=== PATIENT | male | born 1990 | race Caucasian/White ===

== ENCOUNTER 2019-03-14 20:09 | Emergency (ER) | payer SELFPAY ==
[2019-03-14] MEDS ORDERED: NA CHLORIDE 0.9% 1,000 ML ONE (20:58)
[2019-03-14 21:13] LABS: Urine Blood NEGATIVE (NEG); Urine Glucose NEGATIVE (NEG); Urine Protein NEGATIVE (NEG); Urine Specific Gravity 1.015 (1.005-1.030); Urine pH 8.5 (5.0-7.0)
[2019-03-14 21:23] LABS: Barbiturates NEGATIVE (NEGATIVE); Benzodiazepines NEGATIVE (NEGATIVE); Cocaine NEGATIVE (NEGATIVE); METHAMPHETAM NEGATIVE (NEGATIVE); Methadone NEGATIVE (NEGATIVE); Opiates NEGATIVE (NEGATIVE); Phencyclidine NEGATIVE (NEGATIVE); THC Cannibis NEGATIVE (NEGATIVE)
[2019-03-14 21:28] LABS: Absolute Lymphocytes (CBC) 1.8 K/uL (0.7-4.9); Basophils % 0.6 % (0-1.3); Lymphocytes % 34.5 % (15.3-44.8); MPV 8.3 fL (7.6-11.3); RBC Red Blood Cell Count 4.78 M/uL (4.33-5.43)
[2019-03-14 21:33] LABS: ALT/SGPT 40 U/L (12-78); AST/SGOT 26 U/L (15-37); Albumin 4.4 g/dL (3.4-5.0); Alkaline Phosphatase 71 U/L (45-117); BUN Blood Urea Nitrogen 12 mg/dL (7-18); Bicarbonate 31 mmol/L (21-32); Bilirubin Total 0.4 mg/dL (0.2-1.0); Glucose Level 90 mg/dL (74-106); Lipase 101 U/L (73-393); Potassium 4.3 mmol/L (3.5-5.1); Protein, Total 8.2 g/dL (6.4-8.2); Sodium Level 140 mmol/L (136-145)
--- NOTE | 2019-03-14 21:37 | ER ---
Nurse's Notes [facility] Name: Fuentes Mccall Age: 28 yrs Sex: Male : 1990 Arrival Date: 03/14/2019 Time: 20:13 Bed 16 Private MD: Diagnosis: Weakness;Anxiety disorder, unspecified Presentation: 03/14 20:17 Presenting complaint: Patient states: tingling all over, anxiety, fatigue with ak1 increased stress at home. pt has stopped his gastric sleeve vitamins. pt with hx anxiety. Transition of care: patient was not received from another setting of care. Onset of symptoms is unknown. Risk Assessment: Do you want to hurt yourself or someone else? Patient reports no desire to harm self or others. Initial Sepsis Screen: Does the patient meet any 2 criteria? No. Patient's initial sepsis screen is negative. Does the patient have a suspected source of infection? No. Patient's initial sepsis screen is negative. Care prior to arrival: None. 20:17 Method Of Arrival: Ambulatory ak1 20:17 Acuity: TEO 3 ak1 Triage Assessment: 20:20 General: Appears in no apparent distress. Behavior is calm, cooperative. Neuro: Level ak1 of Consciousness is awake, alert, obeys commands, Oriented to person, place, time, situation, Carbon Brush Maker are equal bilaterally Moves all extremities. Gait is steady, Speech is normal, Facial symmetry appears normal. Historical: - Allergies: 20:20 No Known Allergies; ak1 - Home Meds: 20:20 Effexor Oral [Active]; lorazepam 1 mg Oral tab 1 tab PRN [Active]; ak1 - PMHx: 20:20 Depression; Anxiety; ak1 - PSHx: 20:20 gastric sleeve; ak1 - Immunization history:: Adult Immunizations unknown. - Social history:: Smoking status: Patient uses tobacco products, smokes one-half pack cigarettes per day. - Ebola Screening: : No symptoms or risks identified at this time. Screenin:21 Abuse screen: Denies threats or abuse. Denies injuries from another. Nutritional ak1 screening: No deficits noted. Tuberculosis screening: No symptoms or risk factors identified. Fall Risk None identified. Assessment: 20:30 General: Appears in no apparent distress. uncomfortable, well groomed, well nourished, jd3 Behavior is cooperative, appropriate for age, anxious. Pain: Denies pain. Neuro: Level of Consciousness is awake, alert, obeys commands, Oriented to person, place, time, situation, Carbon Brush Maker are equal bilaterally Moves all extremities. Full function Gait is steady, Speech is normal, Pupils are PERRLA, Intact Reports reports a tingling and twitching sensation all over as well as generalized fatigue. . Denies blurred vision photophobia diplopia. Cardiovascular: Denies chest pain, nausea, shortness of breath, Heart tones S1 S2 present Capillary refill < 3 seconds Patient's skin is warm and dry. Respiratory: Airway is patent Respiratory effort is even, unlabored, Respiratory pattern is regular, symmetrical, Breath sounds are clear bilaterally. Denies cough, shortness of breath. GI: Abdomen is flat, non-distended, Bowel sounds present X 4 quads. Abd is soft and non tender X 4 quads. Patient currently denies abdominal pain, diarrhea, nausea, vomiting. : No signs and/or symptoms were reported regarding the genitourinary system. EENT: No signs and/or symptoms were reported regarding the EENT system. Derm: Skin is intact, Skin is dry, Skin is normal, Skin temperature is warm. Musculoskeletal: Circulation, motion, and sensation intact. Range of motion: intact in all extremities. 21:32 Reassessment: Patient appears in no apparent distress at this time. Patient and/or jd3 family updated on plan of care and expected duration. Pain level reassessed. Patient is alert, oriented x 3, equal unlabored respirations, skin warm/dry/pink. Patient states symptoms have improved. 21:51 Reassessment: Patient appears in no apparent distress at this time. Patient and/or jd3 family updated on plan of care and expected duration. Pain level reassessed. Patient is alert, oriented x 3, equal unlabored respirations, skin warm/dry/pink. awaiting IV infusion completion before discharge. Patient states symptoms have improved. 22:14 Reassessment: Patient appears in no apparent distress at this time. Patient and/or jd3 family updated on plan of care and expected duration. Pain level reassessed. Patient is alert, oriented x 3, equal unlabored respirations, skin warm/dry/pink. reported understanding of discharge instructions. even and steady gait upon discharge. Patient denies pain at this time. Patient states feeling better. Patient states symptoms have improved. Vital Signs: 20:20 BP 132 / 90; Pulse 117; Resp 18; Temp 98.2; Pulse Ox 98% on R/A; Weight 68.95 kg (R); ak1 Height 5 ft. 8 in. (172.72 cm) (R); Pain 0/10; 22:14 Pulse 99; Resp 15 S; Pulse Ox 100% on R/A; Pain 0/10; jd3 20:20 Body Mass Index 23.11 (68.95 kg, 172.72 cm) ak1 ED Course: 20:13 Patient arrived in ED. ag3 20:19 Triage completed. ak1 20:20 Arm band placed on Patient placed in an exam room, on a stretcher, on pulse oximetry, ak1 Patient notified of wait time. 20:21 Patient has correct armband on for positive identification. Bed in low position. Call ak1 light in reach. Side rails up X 1. 20:29 Nicolás Bowling MD is Attending Physician. steven 20:29 Derrick Mason, SIMEON is Primary Nurse. jd3 21:05 Inserted saline lock: 20 gauge in left antecubital area, using aseptic technique. Blood jd3 collected. 22:15 No provider procedures requiring assistance completed. IV discontinued, intact, jd3 bleeding controlled, No redness/swelling at site. Pressure dressing applied. Administered Medications: 21:04 Drug: NS 0.9% 1000 ml Route: IV; Rate: 1 bolus; Site: left antecubital; jd3 22:16 Follow up: Response: No adverse reaction; IV Status: Completed infusion; IV Intake: jd3 1000ml Intake: 22:16 IV: 1000ml; Total: 1000ml. jd3 Outcome: 21:36 Discharge ordered by . steven 22:15 Discharged to home ambulatory, with friend. jd3 22:15 Condition: stable 22:15 Discharge instructions given to patient, Instructed on discharge instructions, follow up and referral plans. medication usage, Demonstrated understanding of instructions, follow-up care, medications, Prescriptions given X 1. 22:16 Patient left the ED. jd3 Signatures: Nicolás Bowling MD MD cha Krenek, Amber, RN RN ak1 Williams Ross Jonathon, SIMEON RN jd3 Cameron, Daniela ag3 Corrections: (The following items were deleted from the chart) 21:08 21:05 Inserted saline lock: in left antecubital area, using aseptic technique. Blood jd3 collected. oe
--- NOTE | 2019-03-14 21:38 | EDPHYS ---
Physician Documentation [facility] Name: Fuentes Mccall Age: 28 yrs Sex: Male : 1990 Arrival Date: 03/14/2019 Time: 20:13 Bed 16 Private MD: ED Physician Nicolás Bowling HPI: 03/14 20:49 This 28 yrs old Male presents to ER via Ambulatory with complaints of steven Weakness, SWEATING, DRY MOUTH. 20:49 The patient presents to the emergency department with weakness of the entire body, steven generalized weakness. Historical: - Allergies: 20:20 No Known Allergies; ak1 - Home Meds: 20:20 Effexor Oral [Active]; lorazepam 1 mg Oral tab 1 tab PRN [Active]; ak1 - PMHx: 20:20 Depression; Anxiety; ak1 - PSHx: 20:20 gastric sleeve; ak1 - Immunization history:: Adult Immunizations unknown. - Social history:: Smoking status: Patient uses tobacco products, smokes one-half pack cigarettes per day. - Ebola Screening: : No symptoms or risks identified at this time. ROS: 20:50 Constitutional: Negative for fever, chills, and weight loss, Eyes: Negative for injury, steven pain, redness, and discharge, ENT: Negative for injury, pain, and discharge, Neck: Negative for injury, pain, and swelling, Cardiovascular: Negative for chest pain, palpitations, and edema, Respiratory: Negative for shortness of breath, cough, wheezing, and pleuritic chest pain, Abdomen/GI: Negative for abdominal pain, nausea, vomiting, diarrhea, and constipation, Back: Negative for injury and pain, : Negative for injury, bleeding, discharge, and swelling, MS/Extremity: Negative for injury and deformity, Skin: Negative for injury, rash, and discoloration, Psych: Negative for depression, anxiety, suicide ideation, homicidal ideation, and hallucinations, Allergy/Immunology: Negative for hives, rash, and allergies, Endocrine: Negative for neck swelling, polydipsia, polyuria, polyphagia, and marked weight changes, Hematologic/Lymphatic: Negative for swollen nodes, abnormal bleeding, and unusual bruising. 20:50 Neuro: Positive for weakness. Exam: 20:50 Constitutional: This is a well developed, well nourished patient who is awake, alert, steven and in no acute distress. Head/Face: Normocephalic, atraumatic. Eyes: Pupils equal round and reactive to light, extra-ocular motions intact. Lids and lashes normal. Conjunctiva and sclera are non-icteric and not injected. Cornea within normal limits. Periorbital areas with no swelling, redness, or edema. ENT: Nares patent. No nasal discharge, no septal abnormalities noted. Tympanic membranes are normal and external auditory canals are clear. Oropharynx with no redness, swelling, or masses, exudates, or evidence of obstruction, uvula midline. Mucous membranes moist. Neck: Trachea midline, no thyromegaly or masses palpated, and no cervical lymphadenopathy. Supple, full range of motion without nuchal rigidity, or vertebral point tenderness. No Meningismus. Chest/axilla: Normal chest wall appearance and motion. Nontender with no deformity. No lesions are appreciated. Respiratory: Lungs have equal breath sounds bilaterally, clear to auscultation and percussion. No rales, rhonchi or wheezes noted. No increased work of breathing, no retractions or nasal flaring. Abdomen/GI: Soft, non-tender, with normal bowel sounds. No distension or tympany. No guarding or rebound. No evidence of tenderness throughout. Back: No spinal tenderness. No costovertebral tenderness. Full range of motion. Male : Normal genitalia with no discharge or lesions. Skin: Warm, dry with normal turgor. Normal color with no rashes, no lesions, and no evidence of cellulitis. MS/ Extremity: Pulses equal, no cyanosis. Neurovascular intact. Full, normal range of motion. Neuro: Awake and alert, GCS 15, oriented to person, place, time, and situation. Cranial nerves II-XII grossly intact. Motor strength 5/5 in all extremities. Sensory grossly intact. Cerebellar exam normal. Normal gait. Psych: Awake, alert, with orientation to person, place and time. Behavior, mood, and affect are within normal limits. 20:50 Cardiovascular: Rate: tachycardic, Rhythm: regular, Pulses: no pulse deficits are appreciated, Heart sounds: normal, Edema: is not appreciated, JVD: is not appreciated. Vital Signs: 20:20 BP 132 / 90; Pulse 117; Resp 18; Temp 98.2; Pulse Ox 98% on R/A; Weight 68.95 kg (R); ak1 Height 5 ft. 8 in. (172.72 cm) (R); Pain 0/10; 22:14 Pulse 99; Resp 15 S; Pulse Ox 100% on R/A; Pain 0/10; jd3 20:20 Body Mass Index 23.11 (68.95 kg, 172.72 cm) ak1 MDM: 20:29 Patient medically screened. [facility] 20:51 Data reviewed: vital signs, nurses notes, lab test result(s). [facility] 03/14 20:48 Order name: CBC with Diff [facility] 03/14 20:48 Order name: Comprehensive Metabolic Panel; Complete Time: 21:34 [facility] 03/14 20:48 Order name: UDS; Complete Time: 21:34 [facility] 03/14 20:48 Order name: Lipase; Complete Time: 21:34 [facility] 03/14 20:58 Order name: Urine Dipstick--Ancillary (enter results); Complete Time: 21:34 cm6 03/14 20:48 Order name: Urine Dipstick-Ancillary (obtain specimen); Complete Time: 21:04 [facility] Administered Medications: 21:04 Drug: NS 0.9% 1000 ml Route: IV; Rate: 1 bolus; Site: left antecubital; jd3 22:16 Follow up: Response: No adverse reaction; IV Status: Completed infusion; IV Intake: jd3 1000ml Disposition: 03/14/19 21:36 Discharged to Home. Impression: Weakness, Anxiety disorder, unspecified. - Condition is Stable. - Discharge Instructions: Weakness, Weakness, [id number], Generalized Anxiety Disorder. - Prescriptions for Klonopin 0.5 mg Oral Tablet - take 1 tablet by ORAL route every 12 hours As needed; 20 tablet. - Medication Reconciliation Form, Thank You Letter, Antibiotic Education, Prescription Opioid Use form. - Follow up: Private Physician; When: 2 - 3 days; Reason: Recheck today's complaints, Continuance of care, Re-evaluation by your physician. - Problem is new. - Symptoms have improved. Signatures: Dispatcher [employer] EDNicolás Wharton MD MD cha Krenek, Amber, RN RN ak1 Derrick Mason RN RN jd3 Corrections: (The following items were deleted from the chart) 22:16 21:36 03/14/2019 21:36 Discharged to Home. Impression: Weakness; Anxiety disorder, jd3 unspecified. Condition is Stable. Discharge Instructions: Weakness, Weakness, [id number], Generalized Anxiety Disorder. Prescriptions for Klonopin 0.5 mg Oral Tablet - take 1 tablet by ORAL route every 12 hours As needed; 20 tablet. and Forms are Medication Reconciliation Form, Thank You Letter, Antibiotic Education, Prescription Opioid Use. Follow up: Private Physician; When: 2 - 3 days; Reason: Recheck today's complaints, Continuance of care, Re-evaluation by your physician. Problem is new. Symptoms have improved. steven
== END 2019-03-14 22:16 | disposition home or self-care (01) ==
LOC: ER 20:09
DX: F41.1 Generalized anxiety disorder (principal); F17.210 Nicotine dependence, cigarettes, uncomplicated; F32.9 Major depressive disorder, single episode, unspecified
CPT/HCPCS: 36415; 80053; 80307; 81003; 83690; 85025; 96360; 99284; J7030

== ENCOUNTER 2020-03-20 06:10 | Emergency (ER) | payer SELFPAY ==
[2020-03-20] MEDS ORDERED: DIAZEPAM 10 MG/2 ML INJ SYRINGE ONE (06:39)
[2020-03-20] MEDS ORDERED: NA CHLORIDE 0.9% 1,000 ML ONE ×2 (07:08→09:47)
[2020-03-20 07:31] LABS: Absolute Lymphocytes (CBC) 1.1 K/uL (0.7-4.9); Basophils % 0.5 % (0-1.3); Hematocrit 40.8 % (39.6-49.0); Lymphocytes % 13.5 % (15.3-44.8); MPV 7.5 fL (7.6-11.3); RBC Red Blood Cell Count 4.33 M/uL (4.33-5.43)
[2020-03-20 07:36] LABS: Protime INR 0.99
[2020-03-20 07:58] LABS: ALT/SGPT 26 U/L (12-78); AST/SGOT 33 U/L (15-37); Albumin 3.9 g/dL (3.4-5.0); Alkaline Phosphatase 146 U/L (45-117); BUN Blood Urea Nitrogen 13 mg/dL (7-18); Bicarbonate 24 mmol/L (21-32); Bilirubin Direct 0.2 mg/dL (0-0.2); Bilirubin Total 0.6 mg/dL (0.2-1.0); Glucose Level 102 mg/dL (74-106); Potassium 3.5 mmol/L (3.5-5.1); Protein, Total 8.3 g/dL (6.4-8.2); Sodium Level 141 mmol/L (136-145)
[2020-03-20 08:15] LABS: Barbiturates NEGATIVE (NEGATIVE); Benzodiazepines NEGATIVE (NEGATIVE); Cocaine NEGATIVE (NEGATIVE); METHAMPHETAM POSITIVE (NEGATIVE); Methadone NEGATIVE (NEGATIVE); Opiates NEGATIVE (NEGATIVE); Phencyclidine NEGATIVE (NEGATIVE); THC Cannibis NEGATIVE (NEGATIVE)
[2020-03-20 09:34] LABS: Urine Blood NEGATIVE (NEG); Urine Glucose NEGATIVE (NEG); Urine Protein 1+ (NEG); Urine pH 7.5 (5.0-7.0)
--- NOTE | 2020-03-20 11:12 | ER ---
Nurse's Notes [facility] Name: Fuentes Mccall Age: 29 yrs Sex: Male : 1990 Arrival Date: 03/20/2020 Time: 06:17 Bed 15 Private MD: Diagnosis: Dehydration;Panic disorder [episodic paroxysmal anxiety] without agoraphobia Presentation: 03/20 06:19 Chief complaint: EMS states: "Patient stole a bottle of wine from his mom, mom found vc out so patient went to the beach and smoked some marijuana, he came home and started having a panic attack. his blood pressure was 116/70 with a pulse of 140.". Coronavirus screen: shortness of breath, Client presents with at least one sign or symptom that may indicate coronavirus-19. Standard/surgical mask placed on the client. Ebola Screen: No symptoms or risks identified at this time. Initial Sepsis Screen: Does the patient meet any 2 criteria? HR > 90 bpm. No. Patient's initial sepsis screen is negative. Does the patient have a suspected source of infection? No. Patient's initial sepsis screen is negative. Risk Assessment: Do you want to hurt yourself or someone else? Patient reports no desire to harm self or others. Onset of symptoms was March 20, 2020. 06:19 Method Of Arrival: EMS: [facility] vc 06:19 Acuity: TEO 3 vc 06:19 Chief complaint: Patient states: "I nabbed a bottle of my mommas wine, she found out vc and screamed at my partner instead of me, I'm a recovering alcoholic and drank about half a bottle of wine, I smoked a cigarette and drank a glass of milk, all of a sudden I felt hot all over and felt like I was going to fall out. I have never passed out from a panic attack so this is much worse, I thought I was going to .". 06:24 Chief complaint:. vc Triage Assessment: 06:17 General: Appears in no apparent distress. uncomfortable, Behavior is anxious, vc inappropriate for age. Pain: Denies pain. Historical: - Allergies: 06:49 No Known Allergies; vc - Home Meds: 06:49 Effexor Oral [Active]; vc - PMHx: 06:49 Anxiety; Depression; vc - Immunization history:: Adult Immunizations up to date. - Social history:: Smoking status: Patient reports the use of cigarette tobacco products, smokes one-half pack cigarettes per day. Screenin:17 Abuse screen: Denies threats or abuse. Nutritional screening: No deficits noted. vc Tuberculosis screening: No symptoms or risk factors identified. Fall Risk None identified. Assessment: 06:20 General: Appears in no apparent distress. uncomfortable, slender, Behavior is anxious, vc inappropriate for age. Pain: Denies pain. Neuro: Level of Consciousness is awake, alert, obeys commands, Oriented to person, place, time, situation, Appropriate for age. Cardiovascular: Capillary refill < 3 seconds. Respiratory: Airway is patent Respiratory effort is Respiratory pattern is hyperventilation. GI: No signs and/or symptoms were reported involving the gastrointestinal system. : No signs and/or symptoms were reported regarding the genitourinary system. Derm: Skin is diaphoretic. 06:56 Reassessment: Patient and/or family updated on plan of care and expected duration. Pain vc level reassessed. patient is screaming, "oh God, not today satan," followed by a forced cough, patient heard on phone telling family to get here now because he has serotonin syndrome. Patient states symptoms have not improved. 07:04 Reassessment: Patient yells, "guys ya'll are about to have to shock me.". vc 07:28 Reassessment: pt report received from SIMEON López. Pt anxious yelling from room "y'all jr10 I don't feel good, I'm telling you I don't feel good! Y'all are gonna have to shock me!" Upon entering room, pt redirected encouraged slow deep breathing and encourage pt to relax to allow medication to calm anxiety. Pt sinus tach on monitor, otherwise vitals stable. Pt given urinal encouraged to produce specimen. Will continue to monitor. 08:38 Reassessment: Patient and/or family updated on plan of care and expected duration. Pain jr10 level reassessed. Patient is alert, oriented x 3, equal unlabored respirations, skin warm/dry/pink. pt is more calm at this time, no verbal outbursts noted; pt resting comfortably in bed, remains ST on monitor otherwise vitals stable. will continue to monitor and assess. 09:56 Reassessment: Patient and/or family updated on plan of care and expected duration. Pain jr10 level reassessed. Patient is alert, oriented x 3, equal unlabored respirations, skin warm/dry/pink. Patient states feeling better. Patient states symptoms have improved. 11:02 Reassessment: No changes from previously documented assessment. Patient and/or family jr10 updated on plan of care and expected duration. Pain level reassessed. Patient is alert, oriented x 3, equal unlabored respirations, skin warm/dry/pink. Vital Signs: 06:19 BP 147 / 85; Pulse 133; Resp 17; Temp 98.3; Pulse Ox 98% on R/A; vc 07:27 BP 131 / 91; Pulse 120; Resp 26; Pulse Ox 99% on R/A; jr10 08:39 BP 132 / 86; Pulse 115; Resp 20; Pulse Ox 96% on R/A; jr10 09:55 BP 119 / 75; Pulse 114; Resp 20; Pulse Ox 99% on R/A; jr10 11:01 BP 129 / 82; Pulse 105; Resp 20; Pulse Ox 99% on R/A; jr10 ED Course: 06:17 Patient arrived in ED. wh 06:17 Arm band placed on right wrist. vc 06:19 Maribel Wheeler RN is Primary Nurse. vc 06:19 Michelle Pitts FNP-C [facility]. snw 06:19 Juan José Roberto MD is Attending Physician. snw 06:20 Patient has correct armband on for positive identification. Bed in low position. Call vc light in reach. quality assurance monitor chassis on. Pulse ox on. NIBP on. 06:24 Triage completed. vc 07:31 No provider procedures requiring assistance completed. Inserted saline lock: 20 gauge jr10 in right forearm, using aseptic technique. ,using aseptic technique. started via nurse in prior shift IV is patent, is intact, with fluids infusing freely. 08:51 Primary Nurse role handed off by Maribel Wheeler RN jr10 08:51 Ellen Davenport RN is Primary Nurse. jr10 11:22 IV discontinued, intact, bleeding controlled, No redness/swelling at site. Pressure jr10 dressing applied. Administered Medications: 07:00 Drug: Valium 10 mg Route: IVP; Site: right forearm; vc 08:52 Follow up: Response: No adverse reaction jr10 07:01 Drug: NS 0.9% 1000 ml Route: IV; Rate: 1 bolus; Site: right forearm; vc 08:52 Follow up: Response: No adverse reaction; IV Status: Completed infusion jr10 09:55 Drug: NS 0.9% 1000 ml Route: IV; Rate: 1 bolus; Site: right forearm; jr10 11:00 Follow up: Response: No adverse reaction; IV Status: Completed infusion jr10 Outcome: 11:12 Discharge ordered by MD. nichols 11:23 Discharged to home ambulatory. jr10 11:23 Condition: improved 11:23 Discharge instructions given to patient, Instructed on discharge instructions, follow up and referral plans. Demonstrated understanding of instructions, follow-up care. 11:24 Patient left the ED. 10 Signatures: Michelle Pitts, CLINICAL MOLECULAR GENETICIST-C CLINICAL MOLECULAR GENETICIST-Csnw Pineda Carvalho Vanessa RN RN Ellen Parr RN RN jr10 Corrections: (The following items were deleted from the chart) 11:04 11:01 BP 132 / 94; Pulse 105bpm; Resp 20bpm; Pulse Ox 99% RA; jr10 jr10
--- NOTE | 2020-03-20 11:13 | EDPHYS ---
Physician Documentation [facility] Name: Fuentes Mccall Age: 29 yrs Sex: Male : 1990 Arrival Date: 03/20/2020 Time: 06:17 Bed 15 Private MD: ED Physician Juan José Roberto HPI: 03/20 07:02 This 29 yrs old Male presents to ER via EMS with complaints of Anxiety. snw 07:02 Onset: The symptoms/episode began/occurred suddenly, this morning. Associated signs and snw symptoms: Pertinent positives: chest pain. Modifying factors: The patient symptoms are alleviated by nothing, the patient symptoms are aggravated by stimulation. The patient has experienced similar episodes in the past, multiple times, but today's symptoms are worse, lasting longer. It is unknown whether or not the patient has recently seen a physician. Pt with increased stress from family and work, recovering ETOH abuser, not able to access stress management devices, got in argument with Mother, drank 1/2 bottle of wine, smoked some cigarettes and went to the beach. Pt began having panic attack and is extremely anxious. Historical: - Allergies: 06:49 No Known Allergies; vc - Home Meds: 06:49 Effexor Oral [Active]; vc - PMHx: 06:49 Anxiety; Depression; vc - Immunization history:: Adult Immunizations up to date. - Social history:: Smoking status: Patient reports the use of cigarette tobacco products, smokes one-half pack cigarettes per day. ROS: 07:01 Eyes: Negative for injury, pain, redness, and discharge, ENT: Negative for injury, snw pain, and discharge, Neck: Negative for injury, pain, and swelling. 07:01 Abdomen/GI: Negative for abdominal pain, nausea, vomiting, diarrhea, and constipation, Back: Negative for injury and pain, : Negative for injury, bleeding, discharge, and swelling, MS/Extremity: Negative for injury and deformity, Skin: Negative for injury, rash, and discoloration, Neuro: Negative for headache, weakness, numbness, tingling, and seizure. 07:01 Constitutional: Positive for body aches. 07:01 Cardiovascular: Positive for chest pain, palpitations. 07:01 Respiratory: Positive for shortness of breath. 07:01 Psych: Positive for panic, Negative for auditory hallucinations, visual hallucinations, homicidal ideation, suicidal ideation. Exam: 06:59 Head/Face: Normocephalic, atraumatic. Eyes: Pupils equal round and reactive to light, snw extra-ocular motions intact. Lids and lashes normal. Conjunctiva and sclera are non-icteric and not injected. Cornea within normal limits. Periorbital areas with no swelling, redness, or edema. ENT: Nares patent. No nasal discharge, no septal abnormalities noted. Tympanic membranes are normal and external auditory canals are clear. Oropharynx with no redness, swelling, or masses, exudates, or evidence of obstruction, uvula midline. Mucous membranes moist. Neck: Trachea midline, no thyromegaly or masses palpated, and no cervical lymphadenopathy. Supple, full range of motion without nuchal rigidity, or vertebral point tenderness. No Meningismus. Chest/axilla: Normal chest wall appearance and motion. Nontender with no deformity. No lesions are appreciated. 06:59 Respiratory: Lungs have equal breath sounds bilaterally, clear to auscultation and percussion. No rales, rhonchi or wheezes noted. No increased work of breathing, no retractions or nasal flaring. Abdomen/GI: Soft, non-tender, with normal bowel sounds. No distension or tympany. No guarding or rebound. No evidence of tenderness throughout. Back: No spinal tenderness. No costovertebral tenderness. Full range of motion. Skin: Warm, dry with normal turgor. Normal color with no rashes, no lesions, and no evidence of cellulitis. MS/ Extremity: Pulses equal, no cyanosis. Neurovascular intact. Full, normal range of motion. Neuro: Awake and alert, GCS 15, oriented to person, place, time, and situation. Cranial nerves II-XII grossly intact. Motor strength 5/5 in all extremities. Sensory grossly intact. Cerebellar exam normal. Normal gait. 06:59 Constitutional: The patient appears alert, anxious, restless, uncomfortable, fearful 06:59 Cardiovascular: Rate: tachycardic, Rhythm: regular, Heart sounds: normal. 06:59 Psych: Behavior/mood is anxious, Affect is animated, Oriented to person, place, time, Patient has no thoughts/intents to harm self or others. Judgement / Insight is normal. Memory is normal. Delusions/hallucinations are not present. extreme anxiety, frequently grabbing at throat, fearful of dying. Vital Signs: 06:19 BP 147 / 85; Pulse 133; Resp 17; Temp 98.3; Pulse Ox 98% on R/A; vc 07:27 BP 131 / 91; Pulse 120; Resp 26; Pulse Ox 99% on R/A; jr10 08:39 BP 132 / 86; Pulse 115; Resp 20; Pulse Ox 96% on R/A; jr10 09:55 BP 119 / 75; Pulse 114; Resp 20; Pulse Ox 99% on R/A; jr10 11:01 BP 129 / 82; Pulse 105; Resp 20; Pulse Ox 99% on R/A; jr10 MDM: 06:19 Patient medically screened. snw 11:00 Data reviewed: vital signs, nurses notes. Data interpreted: Pulse oximetry: on room air snw is 99 %. Interpretation: normal. Counseling: I had a detailed discussion with the patient and/or guardian regarding: the historical points, exam findings, and any diagnostic results supporting the discharge/admit diagnosis, lab results, the need for outpatient follow up, to return to the emergency department if symptoms worsen or persist or if there are any questions or concerns that arise at home. Special discussion: Based on the history and exam findings, there is no indication for further emergent testing or inpatient evaluation. I discussed with the patient/guardian the need to see the primary care provider for further evaluation of the symptoms. 03/20 06:58 Order name: Acetaminophen; Complete Time: 08:00 snw 03/20 06:58 Order name: Basic Metabolic Panel; Complete Time: 08:00 snw 03/20 06:58 Order name: CBC with Diff; Complete Time: 07:43 snw 03/20 06:58 Order name: ETOH Level; Complete Time: 07:45 snw 03/20 06:58 Order name: Hepatic Function; Complete Time: 08:00 snw 03/20 06:58 Order name: PT-INR; Complete Time: 07:43 snw 03/20 06:58 Order name: Ptt, Activated; Complete Time: 07:43 snw 03/20 06:58 Order name: Salicylate; Complete Time: 07:58 snw 03/20 06:58 Order name: Urine Drug Screen; Complete Time: 08:17 snw 03/20 06:58 Order name: EKG; Complete Time: 06:58 snw 03/20 07:56 Order name: Urine Dipstick--Ancillary (enter results); Complete Time: 09:35 bd 03/20 06:58 Order name: EKG - Nurse/Tech; Complete Time: 07:00 snw 03/20 06:58 Order name: IV Saline Lock; Complete Time: 07:00 snw 03/20 06:58 Order name: Labs collected and sent; Complete Time: 07:26 snw 03/20 06:58 Order name: Urine Dipstick-Ancillary (obtain specimen); Complete Time: 08:52 snw Administered Medications: 07:00 Drug: Valium 10 mg Route: IVP; Site: right forearm; vc 08:52 Follow up: Response: No adverse reaction jr10 07:01 Drug: NS 0.9% 1000 ml Route: IV; Rate: 1 bolus; Site: right forearm; vc 08:52 Follow up: Response: No adverse reaction; IV Status: Completed infusion jr10 09:55 Drug: NS 0.9% 1000 ml Route: IV; Rate: 1 bolus; Site: right forearm; jr10 11:00 Follow up: Response: No adverse reaction; IV Status: Completed infusion jr10 Disposition: 19:54 Co-signature as Attending Physician, Juan José Roberto MD I agree with the assessment and tw4 plan of care. Disposition: 03/20/20 11:12 Discharged to Home. Impression: Dehydration, Panic disorder [episodic paroxysmal anxiety] without agoraphobia. - Condition is Stable. - Discharge Instructions: Panic Attacks, Dehydration, Adult, Stress and Stress Management, Rehydration, Adult. - Medication Reconciliation Form, Thank You Letter, Antibiotic Education, Prescription Opioid Use form. - Follow up: Emergency Department; When: As needed; Reason: Worsening of condition. Follow up: Private Physician; Reason: Recheck today's complaints, Continuance of care, Re-evaluation by your physician. Signatures: Dispatcher [employer] EDMichelle Mtz FNP-C INSPECTOR CHIEF-Juan José Darling MD MD tw4 Maribel Wheeler RN RN Ellen Parr RN RN jr10 Corrections: (The following items were deleted from the chart) 11:24 11:12 03/20/2020 11:12 Discharged to Home. Impression: Dehydration; Panic disorder jr10 [episodic paroxysmal anxiety] without agoraphobia. Condition is Stable. Forms are Medication Reconciliation Form, Thank You Letter, Antibiotic Education, Prescription Opioid Use. Follow up: Emergency Department; When: As needed; Reason: Worsening of condition. Follow up: Private Physician; Reason: Recheck today's complaints, Continuance of care, Re-evaluation by your physician. snw
--- NOTE | 2020-03-21 07:35 | EKG ---
Test Date: 2020-03-20 Test Time: 06:16:29 [employer]bed Truck Driver: MEASUREMENT RESULTS: Intervals: Rate: 126 TX: 136 QRSD: 82 QT: 310 QTc: 448 [place]: P: 70 TX: 136 QRS: 76 T: 63 INTERPRETIVE STATEMENTS: Sinus tachycardia Otherwise normal ECG No previous ECG available for comparison Electronically Signed On 03-21-20 07:32:39 CDT by Horacio Joaquin
[2020-03-24 12:09] VITALS: TEMP 98.3
[2020-03-24 12:13] VITALS: O2SAT 99
[2020-03-24 12:14] VITALS: BP 129/82
== END 2020-03-20 11:24 | disposition home or self-care (01) ==
LOC: ER 06:10
DX: F41.0 Panic disorder [episodic paroxysmal anxiety] (principal); E86.0 Dehydration; F17.210 Nicotine dependence, cigarettes, uncomplicated
CPT/HCPCS: 36415; 80048; 80076; 80307; 80320; 80329; 81003; 85025; 85610; 85730; 93005; 96361; 96374; 99284; J3360; J7030

== ENCOUNTER 2020-03-25 05:55 | Emergency (ER) | payer SELFPAY ==
[2020-03-25] MEDS ORDERED: FENTANYL CITR 100 MCG/2 ML ONE (06:46)
[2020-03-25] MEDS ORDERED: NA CHLORIDE 0.9% 1,000 ML ONE (06:46)
[2020-03-25 07:00] LABS: Absolute Lymphocytes (CBC) 1.3 K/uL (0.7-4.9); Basophils % 0.4 % (0-1.3); Hematocrit 39.6 % (39.6-49.0); Lymphocytes % 21.5 % (15.3-44.8); MPV 7.7 fL (7.6-11.3); Protime INR 1.06; RBC Red Blood Cell Count 4.17 M/uL (4.33-5.43)
[2020-03-25 07:05] LABS: BUN Blood Urea Nitrogen 8 mg/dL (7-18); Bicarbonate 21 mmol/L (21-32); Glucose Level 81 mg/dL (74-106); Potassium 3.4 mmol/L (3.5-5.1); Sodium Level 139 mmol/L (136-145)
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
[2020-03-25] MEDS ORDERED: KETOROLAC 30 MG/ML INJ ONE (08:19)
[2020-03-25] MEDS ORDERED: POTASSIUM 25 MEQ EFFERV TAB ONE (08:20)
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
[2020-03-28 13:46] VITALS: TEMP 98
[2020-03-28 13:47] VITALS: BP 118/79; O2SAT 100
== END 2020-03-25 08:38 | disposition home or self-care (01) ==
LOC: ER 05:55
DX: R07.89 Other chest pain (principal); S70.02XA Contusion of left hip, initial encounter; R10.11 Right upper quadrant pain; V94.89XA Other water transport accident, initial encounter; Y93.9 Activity, unspecified; F17.210 Nicotine dependence, cigarettes, uncomplicated
CPT/HCPCS: 36415; 71045; 71260; 72170; 74177; 80048; 85025; 85610; 86850; 86900; 86901; 96374; 96375; 99284; G0390; J3010; J7030; Q9967

== ENCOUNTER 2020-03-25 12:28 | Emergency (ER) | payer SELFPAY ==
[2020-03-25] MEDS ORDERED: IPRATROPIUM BROM 0.5MG/2.5ML ONE (13:30)
[2020-03-25] MEDS ORDERED: ALBUTEROL 2.5 MG/3 ML NEB SOL ONE (13:30)
[2020-03-25] MEDS ORDERED: NA CHLORIDE 0.9% 1,000 ML ONE (13:30)
[2020-03-25] MEDS ORDERED: METHYLPREDNISOLONE 125 MG INJ ONE (13:30)
[2020-03-25] MEDS ORDERED: DIPHENHYDRAMINE 50 MG/ML VIAL ONE (13:40)
--- NOTE | 2020-03-25 14:47 | EDPHYS ---
Physician Documentation [facility] Name: Fuentes Mccall Age: 29 yrs Sex: Male : 1990 Arrival Date: 03/25/2020 Time: 12:29 Bed 17 Private MD: ED Physician Giselle Osuna HPI: 03/25 13:54 This 29 yrs old Male presents to ER via Ambulatory with complaints of ma2 Shortness Of Breath, Chills. 14:04 The patient has shortness of breath during heavy activity. Onset: The symptoms/episode ma2 began/occurred gradually, 2 day(s) ago. Associated signs and symptoms: Pertinent negatives: productive cough, dizziness, hemoptysis, nausea. Severity of symptoms: At their worst the symptoms were mild in the emergency department the symptoms are unchanged. The patient has experienced similar episodes in the past. Historical: - Allergies: 12:38 No Known Allergies; sv - PMHx: 12:38 Anxiety; Depression; sv - PSHx: 12:38 None; sv - Immunization history:: Adult Immunizations. - Social history:: Smoking status: Patient/guardian denies using alcohol, street drugs, The patient lives with family. - Family history:: not pertinent. ROS: 14:04 Constitutional: Negative for fever, chills, and weight loss. ma2 14:04 All other systems are negative. Exam: 14:04 Constitutional: This is a well developed, well nourished patient who is awake, alert, ma2 and in no acute distress. Head/Face: Normocephalic, atraumatic. Eyes: Pupils equal round and reactive to light, extra-ocular motions intact. Lids and lashes normal. Conjunctiva and sclera are non-icteric and not injected. Cornea within normal limits. Periorbital areas with no swelling, redness, or edema. ENT: Nares patent. No nasal discharge, no septal abnormalities noted. Tympanic membranes are normal and external auditory canals are clear. Oropharynx with no redness, swelling, or masses, exudates, or evidence of obstruction, uvula midline. Mucous membranes moist. Neck: Trachea midline, no thyromegaly or masses palpated, and no cervical lymphadenopathy. Supple, full range of motion without nuchal rigidity, or vertebral point tenderness. No Meningismus. Chest/axilla: Normal chest wall appearance and motion. Nontender with no deformity. No lesions are appreciated. Cardiovascular: Regular rate and rhythm with a normal S1 and S2. No gallops, murmurs, or rubs. Normal PMI, no JVD. No pulse deficits. Respiratory: Lungs have equal breath sounds bilaterally, clear to auscultation and percussion. No rales, rhonchi or wheezes noted. No increased work of breathing, no retractions or nasal flaring. Abdomen/GI: Soft, non-tender, with normal bowel sounds. No distension or tympany. No guarding or rebound. No evidence of tenderness throughout. Back: No spinal tenderness. No costovertebral tenderness. Full range of motion. Skin: maculalpular rash over abdomin, fade with pressure, otherwise Warm, dry with normal turgor. Normal color with o lesions, and no evidence of cellulitis. MS/ Extremity: Pulses equal, no cyanosis. Neurovascular intact. Full, normal range of motion. Neuro: Awake and alert, GCS 15, oriented to person, place, time, and situation. Cranial nerves II-XII grossly intact. Motor strength 5/5 in all extremities. Sensory grossly intact. Cerebellar exam normal. Normal gait. Vital Signs: 12:38 BP 126 / 80; Pulse 85; Resp 20; Temp 98.5; Pulse Ox 96% ; sv 14:26 BP 120 / 77; Pulse 92; Resp 18; Pulse Ox 100% on R/A; em MDM: 13:06 Patient medically screened. [facility] 14:04 Differential diagnosis: Anxiety Reaction Bronchitis Psychogenic reactive airway disease.[facility] 14:45 Data reviewed: vital signs, nurses notes. Counseling: I had a detailed discussion with ma2 the patient and/or guardian regarding: the historical points, exam findings, and any diagnostic results supporting the discharge/admit diagnosis, the presence of at least one elevated blood pressure reading (>120/80) during this emergency department visit, the need for outpatient follow up. Response to treatment: the patient's symptoms have resolved after treatment. 03/25 14:02 Order name: [facility] Administered Medications: 13:28 Drug: Benadryl 50 mg Route: IVP; Site: right antecubital; em 13:59 Follow up: Response: No adverse reaction em 13:28 Drug: NS 0.9% 1000 ml Route: IV; Rate: 1 bolus; Site: right antecubital; em 15:00 Follow up: IV Status: Completed infusion; IV Intake: 1000ml em 13:30 Drug: Albuterol - atroVENT (3:1) (2.5 mg - 0.5 mg) 3 ml Route: Nebulizer; em 13:59 Follow up: Response: No adverse reaction em 13:32 Drug: MethylPrednisoLONE 125 mg Route: IVP; Site: right antecubital; em 13:59 Follow up: Response: No adverse reaction em Disposition: 03/25/20 14:46 Discharged to Home. Impression: Other allergic rhinitis - with skin rash and reactive airway disease. - Condition is Stable. - Discharge Instructions: Allergies, Adult, Hives. - Prescriptions for Benadryl 25 mg Oral Capsule - take 1 capsule by ORAL route every 6 hours As needed; 30 tablet. Medrol (Jamar) 4 mg Oral Tablets, Dose Pack - take 1 tablet by ORAL route as directed - follow package instructions; 1 packet. Albuterol Sulfate 90 mcg/actuation - inhale 1-2 puff by INHALATION route every 4-6 hours; 1 Inhaler. - Medication Reconciliation Form, Thank You Letter, Antibiotic Education, Prescription Opioid Use form. - Follow up: Private Physician; When: Tomorrow; Reason: Continuance of care. Signatures: Dispatcher [employer] Shanna Farris, RN SIMEON Brendon Huertas RN RN em Alzahri, Mohammad, MD MD ma2 Corrections: (The following items were deleted from the chart) 15:01 14:46 03/25/2020 14:46 Discharged to Home. Impression: Other allergic rhinitis - with em skin rash and reactive airway disease. Condition is Stable. Forms are Medication Reconciliation Form, Thank You Letter, Antibiotic Education, Prescription Opioid Use. Follow up: Private Physician; When: Tomorrow; Reason: Continuance of care. ma2
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
[2020-03-28 18:12] VITALS: TEMP 98.5
[2020-03-28 18:14] VITALS: BP 120/77; O2SAT 100
== END 2020-03-25 15:01 | disposition home or self-care (01) ==
LOC: ER 12:28
DX: J45.909 Unspecified asthma, uncomplicated (principal); Z20.828 Contact with and (suspected) exposure to other viral communicable diseases; R21 Rash and other nonspecific skin eruption
CPT/HCPCS: 96361; 96374; 96375; 99284; J1200; J2930; J7030; U0002

== ENCOUNTER 2020-04-09 05:52 | Emergency (ER) | payer SELFPAY ==
--- NOTE | 2020-04-09 07:28 | RAD REPORT ---
EXAM DESCRIPTION: Niki Single View04/09/2020 6:52 am CLINICAL HISTORY: Cough COMPARISON: February 2020 FINDINGS: The lungs appear clear of acute infiltrate. The heart is normal size IMPRESSION: No acute abnormalities displayed
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
--- NOTE | 2020-04-09 08:58 | EDPHYS ---
Physician Documentation [facility] Name: Fuentes Mccall Age: 29 yrs Sex: Male : 1990 Arrival Date: 04/09/2020 Time: 05:57 Bed 13 Private MD: ED Physician Ramiro Chung HPI: 04/09 07:33 This 29 yrs old Male presents to ER via Ambulatory with complaints of Fever, pm1 Cough. 07:33 The patient reports fever, that was measured at 100 degrees Fahrenheit. pm1 07:33 Onset: The symptoms/episode began/occurred yesterday. Modifying factors: there are no pm1 obvious modifying factors. Associated signs and symptoms: Pertinent positives: cough, right rib pain from contusion 2 weeks ago. The patient has been recently seen at the [facility] Emergency Department, for similar complaints labs were performed, two weeks ago. Historical: - Allergies: 06:11 No Known Allergies; wh - PMHx: 06:11 Anxiety; Depression; wh - Immunization history:: Adult Immunizations up to date. - Social history:: Smoking status: Patient reports the use of cigarette tobacco products, denies chronic smoking, but will smoke occasionally. ROS: 07:33 Constitutional: Negative for fever, chills, and weight loss, Eyes: Negative for injury, pm1 pain, redness, and discharge, ENT: Negative for injury, pain, and discharge, Neck: Negative for injury, pain, and swelling, Cardiovascular: Negative for chest pain, palpitations, and edema. 07:33 Abdomen/GI: Negative for abdominal pain, nausea, vomiting, diarrhea, and constipation, Back: Negative for injury and pain, MS/Extremity: Negative for injury and deformity, Skin: Negative for injury, rash, and discoloration, Neuro: Negative for headache, weakness, numbness, tingling, and seizure. 07:33 Respiratory: Positive for cough, Negative for shortness of breath, sputum production, wheezing. Exam: 07:33 Constitutional: This is a well developed, well nourished patient who is awake, alert, pm1 and in no acute distress. Head/Face: Normocephalic, atraumatic. 07:33 Chest/axilla: Normal chest wall appearance and motion. Nontender with no deformity. No lesions are appreciated. 07:33 Abdomen/GI: Soft, non-tender, with normal bowel sounds. No distension or tympany. No guarding or rebound. No evidence of tenderness throughout. Back: No spinal tenderness. No costovertebral tenderness. Full range of motion. MS/ Extremity: Pulses equal, no cyanosis. Neurovascular intact. Full, normal range of motion. 07:33 Cardiovascular: Exam negative for acute changes, Rate: normal, Rhythm: regular, Pulses: no pulse deficits are appreciated. 07:33 Respiratory: Exam negative for acute changes, respiratory distress, shortness of breath. 07:33 Skin: Appearance: normal except for affected area, injury, abrasion(s), small abrasion noted, of the arch of left foot. 07:33 Neuro: Exam negative for acute changes, Orientation: is normal, Mentation: is normal, Motor: is normal, moves all fours. Vital Signs: 06:08 BP 107 / 73; Pulse 68; Resp 18; Temp 98.9; Pulse Ox 100% ; wh 07:19 BP 107 / 70; Pulse 72; Resp 17; Pulse Ox 99% on R/A; tw2 08:19 BP 111 / 70; Pulse 63; Resp 16; Temp 98.3(O); Pulse Ox 100% on R/A; mh5 09:20 BP 120 / 81; Pulse 86; Resp 17; Pulse Ox 100% on R/A; tw2 MDM: 06:15 Patient medically screened. pm1 06:32 ED course: Patient did not want another covid test. His prior covid test 2 weeks ago pm1 was negative. 07:34 Data reviewed: vital signs. Data interpreted: Pulse oximetry: on room air is 99 %. pm1 Interpretation: normal. 08:57 Counseling: I had a detailed discussion with the patient and/or guardian regarding: the pm1 historical points, exam findings, and any diagnostic results supporting the discharge/admit diagnosis, lab results, radiology results, the need for outpatient follow up, to return to the emergency department if symptoms worsen or persist or if there are any questions or concerns that arise at home. 04/09 06:32 Order name: Flu; Complete Time: 08:57 pm1 04/09 06:32 Order name: Strep; Complete Time: 08:57 pm1 04/09 06:32 Order name: Chest Single View XRAY; Complete Time: 07:29 pm1 04/09 08:58 Order name: Throat Culture EDMS Administered Medications: No medications were administered Disposition: 04/09/20 08:58 Discharged to Home. Impression: Acute upper respiratory infection, unspecified, Abrasion, left foot. - Condition is Stable. - Discharge Instructions: Abrasion, Upper Respiratory Infection, Adult. - Prescriptions for Bactrim DS 800- 160 mg Oral Tablet - take 1 tablet by ORAL route every 12 hours for 10 days; 20 tablet. Guaifenesin AC 10- 100 mg/5 mL Oral Liquid - take 10 milliliters by ORAL route every 4 hours As needed; 200 milliliter. - Medication Reconciliation Form, Thank You Letter, Antibiotic Education, Prescription Opioid Use, Work release form form. - Follow up: Emergency Department; When: As needed; Reason: Worsening of condition. Follow up: Private Physician; When: 2 - 3 days; Reason: Recheck today's complaints, Continuance of care, Re-evaluation by your physician. - Problem is new. - Symptoms have improved. Addendum: 04/11/2020 07:09 Co-signature as Attending Physician, Ramiro Chung MD. r n Signatures: Dispatcher [employer] EDAK Ramiro Chung MD MD rn Marinas, Patrick, GEOTHERMAL ELECTRICAL ENGINEER GEOTHERMAL ELECTRICAL ENGINEER pm1 Valeri Contreras RN RN tw2 Pineda Carvalho Corrections: (The following items were deleted from the chart) 04/09 09:00 08:58 04/09/2020 08:58 Discharged to Home. Impression: Acute upper respiratory pm1 infection, unspecified. Condition is Stable. Forms are Work release form, Medication Reconciliation Form, Thank You Letter, Antibiotic Education, Prescription Opioid Use. Follow up: Emergency Department; When: As needed; Reason: Worsening of condition. Follow up: Private Physician; When: 2 - 3 days; Reason: Recheck today's complaints, Continuance of care, Re-evaluation by your physician. Problem is new. Symptoms have improved. pm1 09:05 09:00 04/09/2020 08:58 Discharged to Home. Impression: Acute upper respiratory pm1 infection, unspecified; Abrasion, right foot. Condition is Stable. Discharge Instructions: Upper Respiratory Infection, Adult. Prescriptions for Tessalon Perles 100 mg Oral Capsule - take 1 capsule by ORAL route every 8 hours As needed; 15 capsule, Bactrim DS 800-160 mg Oral Tablet - take 1 tablet by ORAL route every 12 hours for 10 days; 20 tablet. and Forms are Work release form, Medication Reconciliation Form, Thank You Letter, Antibiotic Education, Prescription Opioid Use. Follow up: Emergency Department; When: As needed; Reason: Worsening of condition. Follow up: Private Physician; When: 2 - 3 days; Reason: Recheck today's complaints, Continuance of care, Re-evaluation by your physician. Problem is new. Symptoms have improved. pm1 09:22 09:05 04/09/2020 08:58 Discharged to Home. Impression: Acute upper respiratory tw2 infection, unspecified; Abrasion, left foot. Condition is Stable. Discharge Instructions: Upper Respiratory Infection, Adult, Abrasion. Prescriptions for Bactrim DS 800-160 mg Oral Tablet - take 1 tablet by ORAL route every 12 hours for 10 days; 20 tablet, Guaifenesin AC 10-100 mg/5 mL Oral Liquid - take 10 milliliters by ORAL route every 4 hours As needed; 200 milliliter. and Forms are Work release form, Medication Reconciliation Form, Thank You Letter, Antibiotic Education, Prescription Opioid Use. Follow up: Emergency Department; When: As needed; Reason: Worsening of condition. Follow up: Private Physician; When: 2 - 3 days; Reason: Recheck today's complaints, Continuance of care, Re-evaluation by your physician. Problem is new. Symptoms have improved. pm1 16:49 07:33 Skin: Appearance: normal except for affected area, injury, abrasion(s), small pm1 abrasion noted, of the arch of right foot, pm1
[2020-04-09 09:35] VITALS: TEMP 98.3; O2SAT 100
[2020-04-09 09:37] VITALS: BP 120/81
== END 2020-04-09 09:22 | disposition home or self-care (01) ==
LOC: ER 05:52
DX: J06.9 Acute upper respiratory infection, unspecified (principal); S90.812A Abrasion, left foot, initial encounter; F17.210 Nicotine dependence, cigarettes, uncomplicated
CPT/HCPCS: 71045; 87070; 87081; 87804; 99283

== ENCOUNTER 2020-04-19 00:55 | Emergency (ER) | payer SELFPAY ==
[2020-04-19 02:31] LABS: Absolute Lymphocytes (CBC) 2.4 K/uL (0.7-4.9); Basophils % 0.6 % (0-1.3); Hematocrit 43.4 % (39.6-49.0); Lymphocytes % 34.5 % (15.3-44.8); MPV 8.1 fL (7.6-11.3); RBC Red Blood Cell Count 4.61 M/uL (4.33-5.43)
[2020-04-19] MEDS ORDERED: MORPHINE 2 MG/ML SYR ONE (02:36)
[2020-04-19] MEDS ORDERED: NA CHLORIDE 0.9% 1,000 ML ONE (02:36)
[2020-04-19] MEDS ORDERED: PANTOPRAZOLE 40 MG INJ ONE (02:36)
[2020-04-19] MEDS ORDERED: ONDANSETRON 4 MG/2 ML VIAL ONE (02:36)
[2020-04-19 02:42] LABS: ALT/SGPT 26 U/L (12-78); AST/SGOT 23 U/L (15-37); Albumin 4.2 g/dL (3.4-5.0); Alkaline Phosphatase 98 U/L (45-117); BUN Blood Urea Nitrogen 12 mg/dL (7-18); Bicarbonate 26 mmol/L (21-32); Bilirubin Total 0.3 mg/dL (0.2-1.0); Glucose Level 84 mg/dL (74-106); Lipase 67 U/L (73-393); Potassium 3.2 mmol/L (3.5-5.1); Sodium Level 141 mmol/L (136-145)
[2020-04-19 04:03] LABS: Urine Blood NEGATIVE (NEG); Urine Glucose NEGATIVE (NEG); Urine Protein NEGATIVE (NEG); Urine Specific Gravity 1.015 (1.005-1.030); Urine pH 8.5 (5.0-7.0)
--- NOTE | 2020-04-19 04:11 | ER ---
Nurse's Notes [facility] Name: Fuentes Mccall Age: 29 yrs Sex: Male : 1990 Arrival Date: 04/19/2020 Time: 00:57 Bed 2 Private MD: Diagnosis: Cough;Gastritis, unspecified;Chest pain, unspecified-wall pain;Bronchitis, not specified as acute or chronic Presentation: 04/19 01:06 Chief complaint: Patient states: I have been coughing up some really dark sputum, its sg almost black and is thick. I have been using this new mask with the carbon filter inserts and Im not sure if that is what is causing it, also reports feeling tired and generalized weakness. no other symptoms reported for triage. Coronavirus screen: Client denies travel out of the [place] in the last 14 days. Ebola Screen: Patient negative for fever greater than or equal to 101.5 degrees Fahrenheit, and additional compatible Ebola Virus Disease symptoms Patient denies exposure to infectious person. Patient denies travel to an Ebola-affected area in the 21 days before illness onset. No symptoms or risks identified at this time. Initial Sepsis Screen: Does the patient meet any 2 criteria? No. Patient's initial sepsis screen is negative. Does the patient have a suspected source of infection? No. Patient's initial sepsis screen is negative. Risk Assessment: Do you want to hurt yourself or someone else? Patient reports no desire to harm self or others. Onset of symptoms was April 19, 2020. Care prior to arrival: None. Transition of care: patient was not received from another setting of care. 01:06 Method Of Arrival: Ambulatory sg 01:06 Acuity: TEO 4 sg 01:31 Note reports is now coughing up blood. sg Historical: - Allergies: 01:04 No Known Allergies; sg - PMHx: 01:04 Anxiety; Depression; sg - PSHx: 03:58 Gastric Sleeve; sg - Immunization history:: Adult Immunizations. - Social history:: Smoking status: Patient reports the use of cigarette tobacco products. - Family history:: not pertinent. Screenin:28 Abuse screen: Denies threats or abuse. Denies injuries from another. Nutritional mg2 screening: No deficits noted. Tuberculosis screening: No symptoms or risk factors identified. Fall Risk IV access (20 points). Assessment: 01:45 General: Appears in no apparent distress. uncomfortable, Behavior is cooperative, jb4 anxious. Pain: Denies pain. Neuro: Level of Consciousness is awake, alert, obeys commands, Oriented to person, place, time, situation. Cardiovascular: Patient's skin is warm and dry. Respiratory: Airway is patent Respiratory effort is even, unlabored, Respiratory pattern is regular, symmetrical, Breath sounds are clear bilaterally. GI: No signs and/or symptoms were reported involving the gastrointestinal system. : No signs and/or symptoms were reported regarding the genitourinary system. EENT: No signs and/or symptoms were reported regarding the EENT system. Derm: Musculoskeletal: Circulation, motion, and sensation intact. Range of motion: intact in all extremities. 02:28 Reassessment: Patient appears in no apparent distress at this time. Pain: Complains of mg2 pain in diaphragm. Neuro: Level of Consciousness is awake, alert, obeys commands, Oriented to person, place, time, situation. Cardiovascular: Rhythm is. Respiratory: Reports shortness of breath Airway is patent Respiratory effort is even, unlabored, Breath sounds are clear. : No signs and/or symptoms were reported regarding the genitourinary system. EENT: No signs and/or symptoms were reported regarding the EENT system. Derm: Skin is intact, is healthy with good turgor, Skin is pink, warm \T\ dry. normal. 02:45 Reassessment: Patient appears in no apparent distress at this time. Patient and/or jb4 family updated on plan of care and expected duration. Pain level reassessed. Patient is alert, oriented x 3, equal unlabored respirations, skin warm/dry/pink. 03:35 Reassessment: Patient appears in no apparent distress at this time. Patient and/or jb4 family updated on plan of care and expected duration. Pain level reassessed. Patient is alert, oriented x 3, equal unlabored respirations, skin warm/dry/pink. 04:21 Reassessment: Patient appears in no apparent distress at this time. Patient and/or jb4 family updated on plan of care and expected duration. Pain level reassessed. Patient is alert, oriented x 3, equal unlabored respirations, skin warm/dry/pink. Verbalized understanding of d/c and follow up instructions. Denies questions or cocnerns. Vital Signs: 01:06 BP 136 / 72; Pulse 87; Resp 16; Temp 98.8; Pulse Ox 100% on R/A; Weight 68.95 kg; sg Height 5 ft. 10 in. (177.80 cm); Pain 3/10; 02:15 BP 134 / 94; Pulse 91; Resp 16; Pulse Ox 100% on R/A; jb4 03:30 BP 148 / 95; Pulse 81; Resp 16; Pulse Ox 100% on R/A; jb4 04:00 BP 120 / 73; Pulse 78; Resp 16; Pulse Ox 100% on R/A; Pain 0/10; jb4 01:06 Body Mass Index 21.81 (68.95 kg, 177.80 cm) sg ED Course: 00:57 Patient arrived in ED. bp1 01:06 Arm band placed on. sg 01:07 Triage completed. sg 01:29 Nicolás Bowling MD is Attending Physician. steven 01:30 Patient has correct armband on for positive identification. Bed in low position. Call jb4 light in reach. Side rails up X 1. Pulse ox on. NIBP on. 02:03 Chest Pa And Lat (2 Views) XRAY In Process Unspecified. EDMS 02:12 Jimmy Tanner, RN is Primary Nurse. mg2 02:21 Emerson Escobar, RN is Primary Nurse. jb4 02:28 Inserted saline lock: 20 gauge in right antecubital area, using aseptic technique. mg2 Blood collected. 03:24 CT Chest, Abdomen, Pelvis - W/Contrast In Process Unspecified. EDMS 04:09 Gonzalo Cohn MD is Referral Physician. steven 04:24 No provider procedures requiring assistance completed. IV discontinued, intact, jb4 bleeding controlled, No redness/swelling at site. Pressure dressing applied. Administered Medications: 02:30 Drug: ProTONIX 40 mg Route: IVP; Site: right antecubital; jb4 03:00 Follow up: Response: No adverse reaction jb4 02:30 Drug: NS 0.9% 1000 ml Route: IV; Rate: 1 bolus; Site: right antecubital; jb4 03:30 Follow up: Response: No adverse reaction; IV Status: Completed infusion jb4 02:56 Not Given (Patient Refused): Zofran (Ondansetron) 4 mg IVP once; over 2 minutes jb4 02:56 Not Given (Patient Refused): morphine 2 mg IVP once; (PAIN>8) RASS on ADMN: Combtv4, jb4 Very Agttd3, Agttd2, Rstlss1, AlertClm0, Drwsy-1, LtSdtn-2, ModSdtn-3, DpSdtn-4, UnArsble-5 x2 Outcome: 04:09 Discharge ordered by MD. harris 04:24 Discharged to home ambulatory, with friend. dimple 04:24 Condition: stable 04:24 Discharge instructions given to patient, friend, Instructed on discharge instructions, follow up and referral plans. Demonstrated understanding of instructions, follow-up care, medications, Prescriptions given X 3. 04:25 Patient left the ED. jb4 Signatures: Dispatcher [employer] EDMS Apolinar Espinal RN Nicolás Mcgarry MD MD cha Bryson, James, RN RN jbJimmy Hernandez RN RN [facility] Mercedes Mccann Corrections: (The following items were deleted from the chart) 03:58 01:04 PSHx: Gastric Bypass; kevon lund
--- NOTE | 2020-04-19 04:11 | EDPHYS ---
Physician Documentation [facility] Name: Fuentes Mccall Age: 29 yrs Sex: Male : 1990 Arrival Date: 04/19/2020 Time: 00:57 Bed 2 Private MD: ED Physician Nicolás Bowling HPI: 04/19 02:09 This 29 yrs old Male presents to ER via Ambulatory with complaints of steven Shortness Of Breath, Inhaled charcoal dust, Chest Pain, Anxiety. 02:09 The patient has shortness of breath at rest, with light activity. Onset: The steven symptoms/episode began/occurred 2 day(s) ago. Duration: The symptoms are continuous. The patient's shortness of breath is aggravated by coughing, light activity, is alleviated by nothing. Associated signs and symptoms: The patient has no apparent associated signs or symptoms. Severity of symptoms: At their worst the symptoms were mild in the emergency department the symptoms are unchanged. The patient has not experienced similar symptoms in the past. Historical: - Allergies: 01:04 No Known Allergies; sg - PMHx: 01:04 Anxiety; Depression; sg - PSHx: 03:58 Gastric Sleeve; sg - Immunization history:: Adult Immunizations. - Social history:: Smoking status: Patient reports the use of cigarette tobacco products. - Family history:: not pertinent. ROS: 02:09 Constitutional: Negative for fever, chills, and weight loss, Eyes: Negative for injury, steven pain, redness, and discharge, ENT: Negative for injury, pain, and discharge, Neck: Negative for injury, pain, and swelling, Cardiovascular: Negative for chest pain, palpitations, and edema, Back: Negative for injury and pain, : Negative for injury, bleeding, discharge, and swelling, MS/Extremity: Negative for injury and deformity, Skin: Negative for injury, rash, and discoloration, Neuro: Negative for headache, weakness, numbness, tingling, and seizure, Psych: Negative for depression, anxiety, suicide ideation, homicidal ideation, and hallucinations, Allergy/Immunology: Negative for hives, rash, and allergies, Endocrine: Negative for neck swelling, polydipsia, polyuria, polyphagia, and marked weight changes, Hematologic/Lymphatic: Negative for swollen nodes, abnormal bleeding, and unusual bruising. 02:09 Respiratory: Positive for cough, with no reported sputum. 02:09 Abdomen/GI: Positive for abdominal pain, abdominal cramps. Exam: 02:09 Constitutional: This is a well developed, well nourished patient who is awake, alert, steven and in no acute distress. Head/Face: Normocephalic, atraumatic. Eyes: Pupils equal round and reactive to light, extra-ocular motions intact. Lids and lashes normal. Conjunctiva and sclera are non-icteric and not injected. Cornea within normal limits. Periorbital areas with no swelling, redness, or edema. ENT: Nares patent. No nasal discharge, no septal abnormalities noted. Tympanic membranes are normal and external auditory canals are clear. Oropharynx with no redness, swelling, or masses, exudates, or evidence of obstruction, uvula midline. Mucous membranes moist. Neck: Trachea midline, no thyromegaly or masses palpated, and no cervical lymphadenopathy. Supple, full range of motion without nuchal rigidity, or vertebral point tenderness. No Meningismus. Cardiovascular: Regular rate and rhythm with a normal S1 and S2. No gallops, murmurs, or rubs. Normal PMI, no JVD. No pulse deficits. Respiratory: Lungs have equal breath sounds bilaterally, clear to auscultation and percussion. No rales, rhonchi or wheezes noted. No increased work of breathing, no retractions or nasal flaring. Abdomen/GI: Soft, non-tender, with normal bowel sounds. No distension or tympany. No guarding or rebound. No evidence of tenderness throughout. Back: No spinal tenderness. No costovertebral tenderness. Full range of motion. Male : Normal genitalia with no discharge or lesions. Skin: Warm, dry with normal turgor. Normal color with no rashes, no lesions, and no evidence of cellulitis. MS/ Extremity: Pulses equal, no cyanosis. Neurovascular intact. Full, normal range of motion. Neuro: Awake and alert, GCS 15, oriented to person, place, time, and situation. Cranial nerves II-XII grossly intact. Motor strength 5/5 in all extremities. Sensory grossly intact. Cerebellar exam normal. Normal gait. Psych: Awake, alert, with orientation to person, place and time. Behavior, mood, and affect are within normal limits. 02:09 Chest/axilla: Inspection: normal, no acute changes, Palpation: tenderness, that is mild, of the diaphragm. Vital Signs: 01:06 BP 136 / 72; Pulse 87; Resp 16; Temp 98.8; Pulse Ox 100% on R/A; Weight 68.95 kg; sg Height 5 ft. 10 in. (177.80 cm); Pain 3/10; 02:15 BP 134 / 94; Pulse 91; Resp 16; Pulse Ox 100% on R/A; jb4 03:30 BP 148 / 95; Pulse 81; Resp 16; Pulse Ox 100% on R/A; jb4 04:00 BP 120 / 73; Pulse 78; Resp 16; Pulse Ox 100% on R/A; Pain 0/10; jb4 01:06 Body Mass Index 21.81 (68.95 kg, 177.80 cm) sg MDM: 01:30 Patient medically screened. [facility] 02:12 Differential diagnosis: Anxiety Reaction asthma, Bronchitis Pneumothorax reactive steven airway disease. Antibiotic administration: The patient is discharged and will get outpatient antibiotics, Zithromax. The patient's Wells Deep Vein Thrombosis Score was calculated as follows: No Risks (0 Pts) Total Score: 0-2 Pts- Low Risk. The patient's pulmonary embolism risk score was calculated as follows: Total Score: 0-2 points. This patient was found to be at low risk for a pulmonary embolism by using the Well's assessment criteria. Immunization status:. Data reviewed: vital signs, nurses notes, lab test result(s), EKG, radiologic studies, CT scan, plain films. Data interpreted: inspector circuitry negative: rate is 87 beats/min, rhythm is regular, Pulse oximetry: on room air is 100 %. Test interpretation: by ED physician or midlevel provider: plain radiologic studies. Counseling: I had a detailed discussion with the patient and/or guardian regarding: the historical points, exam findings, and any diagnostic results supporting the discharge/admit diagnosis, lab results, radiology results, the need for outpatient follow up, a family practitioner. 04/19 02:09 Order name: CBC with Diff; Complete Time: 04:07 [facility] 04/19 02:09 Order name: Comprehensive Metabolic Panel; Complete Time: 04:07 04/19 01:17 Order name: Chest Pa And Lat (2 Views) XRAY snw 04/19 02:09 Order name: Lipase; Complete Time: 04:07 04/19 02:09 Order name: CT Chest, Abdomen, Pelvis - W/Contrast [facility] 04/19 02:34 Order name: Urine Dipstick--Ancillary (enter results); Complete Time: 04:07 [facility] 04/19 02:09 Order name: Urine Dipstick-Ancillary (obtain specimen); Complete Time: 02:29 [facility] 04/19 04:08 Order name: PO challenge: juice; Complete Time: 04:11 [facility] Administered Medications: 02:30 Drug: ProTONIX 40 mg Route: IVP; Site: right antecubital; jb4 03:00 Follow up: Response: No adverse reaction jb4 02:30 Drug: NS 0.9% 1000 ml Route: IV; Rate: 1 bolus; Site: right antecubital; jb4 03:30 Follow up: Response: No adverse reaction; IV Status: Completed infusion jb4 02:56 Not Given (Patient Refused): Zofran (Ondansetron) 4 mg IVP once; over 2 minutes jb4 02:56 Not Given (Patient Refused): morphine 2 mg IVP once; (PAIN>8) RASS on ADMN: Combtv4, jb4 Very Agttd3, Agttd2, Rstlss1, AlertClm0, Drwsy-1, LtSdtn-2, ModSdtn-3, DpSdtn-4, UnArsble-5 x2 Disposition: 04/19/20 04:09 Discharged to Home. Impression: Cough, Gastritis, unspecified, Chest pain, unspecified - wall pain, Bronchitis, not specified as acute or chronic. - Condition is Stable. - Discharge Instructions: Nonspecific Chest Pain, Nonspecific Chest Pain, [id number]-ih-Onvg, Cough, Adult, Nxfq-oa-Lixh, Cough, Adult. - Prescriptions for Protonix 40 mg Oral Tablet - take 1 tablet by ORAL route once daily; 30 tablet. Zithromax Z- Jamar 250 mg Oral Tablet - take 1 tablet by ORAL route as directed for 5 days Day 1 - take two (2) tablets one time. Day 2, 3, 4 , 5 take one (1) tablet once daily.; 6 tablet. Tylenol- Codeine #3 300-30 mg Oral Tablet - take 2 tablets by ORAL route every 6 hours As needed; 20 tablet. - Medication Reconciliation Form, Thank You Letter, Antibiotic Education, Prescription Opioid Use form. - Follow up: Private Physician; When: 2 - 3 days; Reason: Recheck today's complaints, Continuance of care, Re-evaluation by your physician. Follow up: Gonzalo Cohn; When: 2 - 3 days; Reason: Recheck today's complaints, Continuance of care, Re-evaluation by your physician. - Problem is new. - Symptoms have improved. Signatures: Dispatcher [employer] EDApolinar Mayers RN RN sg Anderson, Corey, MD MD cha Bryson, James, RN RN jb4 Corrections: (The following items were deleted from the chart) 03:58 01:04 PSHx: Gastric Bypass; [facility] 04:25 04:09 04/19/2020 04:09 Discharged to Home. Impression: Cough; Gastritis, unspecified; jb4 Chest pain, unspecified - wall pain; Bronchitis, not specified as acute or chronic. Condition is Stable. Discharge Instructions: Nonspecific Chest Pain, Nonspecific Chest Pain, Xwey-rc-[id number], Cough, Adult, Mzkh-pt-Hpjo, Cough, Adult. Prescriptions for Protonix 40 mg Oral Tablet - take 1 tablet by ORAL route once daily; 30 tablet, Zithromax Z-Jamar 250 mg Oral Tablet - take 1 tablet by ORAL route as directed for 5 days Day 1 - take two (2) tablets one time. Day 2, 3, 4 , 5 take one (1) tablet once daily.; 6 tablet, Tylenol-Codeine #3 300-30 mg Oral Tablet - take 2 tablets by ORAL route every 6 hours As needed; 20 tablet. and Forms are Medication Reconciliation Form, Thank You Letter, Antibiotic Education, Prescription Opioid Use. Follow up: Private Physician; When: 2 - 3 days; Reason: Recheck today's complaints, Continuance of care, Re-evaluation by your physician. Follow up: Gonzalo Cohn; When: 2 - 3 days; Reason: Recheck today's complaints, Continuance of care, Re-evaluation by your physician. Problem is new. Symptoms have improved. steven
[2020-04-19 04:30] VITALS: TEMP 98.8; O2SAT 100
[2020-04-19 04:34] VITALS: BP 120/73
--- NOTE | 2020-04-19 08:40 | RAD REPORT ---
EXAM DESCRIPTION: RAD - Chest Pa And Lat (2 Views) - 04/19/2020 2:03 am CLINICAL HISTORY: COUGH COMPARISON: Portable April 09 TECHNIQUE: Frontal and lateral views of the chest were obtained. FINDINGS: The lungs are clear. Small granuloma seen posterior gutter on the right. No peribronchial thickening. Heart size is normal and central vasculature is within normal limits. No pleural effusi on or pneumothorax seen. No acute bony finding noted. No aortic abnormality. IMPRESSION: No acute cardiopulmonary process.
--- NOTE | 2020-04-19 10:22 | RAD REPORT ---
EXAM DESCRIPTION: CT - Chest Abdomen Pelvis W Cont - 04/19/2020 6:34 am CLINICAL HISTORY: BLUNT CHEST TRAUMA TECHNIQUE: Contiguous axial images obtained through the chest following the uneventful administratio n of IV contrast. Coronal and sagittal reformatted images provided. This exam was performed according to our departmental dose-optimization program, which includes autom ated exposure control, adjustment of the mA and/or kV according to patient size and/or use of iterati ve reconstruction technique. COMPARISON: 03/25/2020 FINDINGS: Lungs: Right lower lobe calcified granuloma. No focal consolidation. Airways are patent. Pleura: No effusion. No pneumothorax. Heart and pericardium: The heart is normal in size. No pericardial effusion. Mediastinum and shaan: Soft tissue density in the anterior mediastinum thought to represent residual t hymic tissue. No pathologically enlarged lymph nodes. Lower neck and chest wall: Bilateral gynecomastia. Vessels: Unremarkable Bones: Healing right anterolateral 6th through 9th rib fractures. No acute fracture. IMPRESSION: 1. Healing right anterolateral 6th through 9th rib fractures. No acute fracture. 2. Other findings as above. EXAM DESCRIPTION: CT ABDOMEN PELVIS WITH IV CONTRAST CLINICAL HISTORY: BLUNT CHEST TRAUMA TECHNIQUE: Contiguous axial images obtained through the abdomen and pelvis following the uneventful administration of IV contrast. Coronal and sagittal reformatted images were provided. This exam was performed according to our departmental dose-optimization program, which includes autom ated exposure control, adjustment of the mA and/or kV according to patient size and/or use of iterati ve reconstruction technique. COMPARISON: 03/25/2020 FINDINGS: Liver: Unremarkable Gallbladder and biliary system: Unremarkable Pancreas: Unremarkable Spleen: Unremarkable Adrenals: Unremarkable Kidneys: Normal renal cortical enhancement. No calculi. No hydronephrosis. Bowel: Prior gastric surgery. No obstruction. No appreciable mucosal thickening. Appendix: Normal caliber appendix. No findings to suggest acute appendicitis. Urinary bladder: Unremarkable Reproductive: Unremarkable as visualized Lymph nodes: No pathologically enlarged lymph nodes. Peritoneum: No focal fluid collection. No free air. Vessels: No abdominal aortic aneurysm. Abdominal wall: Tiny fat-containing umbilical hernia. Bones: No acute fracture. IMPRESSION: 1. No evidence for hollow or solid organ injury. 2. Other findings as above. Electronically signed by: Juan Carlos Alvarez MD 04/19/2020 3:47 AM CDT Due to temporary technical issues with the PACS/Fluency reporting system, reports are being signed by the in house radiologist without review as a courtesy to ensure prompt reporting. The interpreting r adiologist is fully responsible for the content of the report.
== END 2020-04-19 04:25 | disposition home or self-care (01) ==
LOC: ER 00:55
DX: J40 Bronchitis, not specified as acute or chronic (principal); R07.9 Chest pain, unspecified; K29.70 Gastritis, unspecified, without bleeding; Z72.0 Tobacco use; Z98.84 Bariatric surgery status
CPT/HCPCS: 36415; 71046; 71260; 74177; 80053; 81003; 82565; 83690; 85025; 96361; 96374; 99284; C9113; J2270; J2405; J7030; Q9967

== ENCOUNTER 2020-05-06 04:48 | Emergency (ER) | payer SELFPAY ==
--- NOTE | 2020-05-06 05:17 | ER ---
Nurse's Notes [facility] Name: Fuentes Mccall Age: 29 yrs Sex: Male : 1990 Arrival Date: 05/06/2020 Time: 04:51 Bed 13 Private MD: Diagnosis: Tinea pedis;Tinea corporis Presentation: 05/06 05:09 Chief complaint: Patient states: he is having a lot of itching to his feet and groin bb area. Coronavirus screen: At this time, the client does not indicate any symptoms associated with coronavirus-19. Ebola Screen: No symptoms or risks identified at this time. Initial Sepsis Screen: Does the patient meet any 2 criteria? No. Patient's initial sepsis screen is negative. Does the patient have a suspected source of infection? No. Patient's initial sepsis screen is negative. Risk Assessment: Do you want to hurt yourself or someone else? Patient reports no desire to harm self or others. Onset of symptoms is unknown. 05:09 Method Of Arrival: Ambulatory bb 05:09 Acuity: TEO 5 bb Triage Assessment: 05:12 General: Appears in no apparent distress. Behavior is calm, cooperative. Pain: bb Complains of pain in generalized. Neuro: Level of Consciousness is awake, alert, obeys commands, Oriented to person, place, time, situation. Cardiovascular: Capillary refill < 3 seconds Patient's skin is warm and dry. Respiratory: Airway is patent Respiratory effort is even, unlabored, Respiratory pattern is regular. GI: No signs and/or symptoms were reported involving the gastrointestinal system. Derm: Rash noted that is on groin, feet, trunk. Musculoskeletal: Circulation, motion, and sensation intact. Historical: - Allergies: 05:12 No Known Allergies; bb - Home Meds: 05:12 Effexor Oral [Active]; bb - PMHx: 05:12 Anxiety; Depression; bb - PSHx: 05:12 Gastric Sleeve; dental surgery; achilles; bb - Immunization history:: Adult Immunizations up to date. - Social history:: Smoking status: Patient reports the use of cigarette tobacco products, smokes one-half pack cigarettes per day. Screenin:13 Abuse screen: Denies threats or abuse. Nutritional screening: No deficits noted. bb Tuberculosis screening: No symptoms or risk factors identified. Fall Risk None identified. Assessment: 05:13 Reassessment: No changes from previously documented assessment. see triage assessment. bb Vital Signs: 05:09 BP 128 / 90; Pulse 81; Resp 16 S; Temp 98.9; Pulse Ox 97% on R/A; Weight 68.04 kg (R); bb Height 5 ft. 8 in. (172.72 cm) (R); Pain 7/10; 05:09 Body Mass Index 22.81 (68.04 kg, 172.72 cm) bb ED Course: 04:51 Patient arrived in ED. ag3 04:53 Juan José Roberto MD is Attending Physician. tw4 05:07 Selina Cárdenas RN is Primary Nurse. bb 05:11 Triage completed. bb 05:12 Arm band placed on Patient placed in an exam room, on a stretcher, on pulse oximetry. bb 05:13 Patient has correct armband on for positive identification. Bed in low position. Call bb light in reach. Pulse ox on. NIBP on. 05:13 No provider procedures requiring assistance completed. Patient did not have IV access bb during this emergency room visit. Administered Medications: 05:14 Drug: DiFLUcan 200 mg Route: PO; bb Outcome: 05:15 Discharged to home ambulatory. bb 05:15 Condition: stable 05:15 Discharge instructions given to patient, Instructed on discharge instructions, follow up and referral plans. Demonstrated understanding of instructions, follow-up care. 05:17 Discharge ordered by . tw4 05:29 Patient left the ED. bb Signatures: Selina Cárdenas RN RN bb Juan José Roberto MD MD tw4 Daniela Cameron ag3
[2020-05-06] MEDS ORDERED: FLUCONAZOLE 100 MG TAB ONE (05:30)
[2020-05-06 05:44] VITALS: BP 128/90; TEMP 98.9; O2SAT 97
--- NOTE | 2020-05-07 05:39 | EDPHYS ---
Physician Documentation [facility] Name: Fuentes Mccall Age: 29 yrs Sex: Male : 1990 Arrival Date: 05/06/2020 Time: 04:51 Bed 13 Private MD: ED Physician Juan José Roberto HPI: 05/06 06:29 This 29 yrs old Male presents to ER via Ambulatory with complaints of Groin tw4 itch, Foot itch. 06:29 The patient's rash thought to be caused by an unknown cause. The rash is located on the tw4 groin, right foot and left foot. The rash can be described as macular. 06:29 Onset: The symptoms/episode began/occurred 1 week(s) ago. Associated signs and tw4 symptoms: Pertinent positives: None. Pertinent negatives: None. Severity of symptoms: At their worst the symptoms were moderate in the emergency department the symptoms are unchanged. The patient has not experienced similar symptoms in the past. Historical: - Allergies: 05:12 No Known Allergies; bb - Home Meds: 05:12 Effexor Oral [Active]; bb - PMHx: 05:12 Anxiety; Depression; bb - PSHx: 05:12 Gastric Sleeve; dental surgery; achilles; bb - Immunization history:: Adult Immunizations up to date. - Social history:: Smoking status: Patient reports the use of cigarette tobacco products, smokes one-half pack cigarettes per day. ROS: 06:29 Constitutional: Negative for fever, chills, and weight loss, Eyes: Negative for injury, tw4 pain, redness, and discharge, ENT: Negative for injury, pain, and discharge, Cardiovascular: Negative for chest pain, palpitations, and edema, Respiratory: Negative for shortness of breath, cough, wheezing, and pleuritic chest pain, Abdomen/GI: Negative for abdominal pain, nausea, vomiting, diarrhea, and constipation, MS/Extremity: Negative for injury and deformity. 06:29 Skin: Positive for rash, Negative for abrasions, abscesses, avulsion, burn. Exam: 06:29 Constitutional: This is a well developed, well nourished patient who is awake, alert, tw4 and in no acute distress. Head/Face: Normocephalic, atraumatic. Chest/axilla: Normal chest wall appearance and motion. Nontender with no deformity. No lesions are appreciated. Cardiovascular: Regular rate and rhythm with a normal S1 and S2. No gallops, murmurs, or rubs. Normal PMI, no JVD. No pulse deficits. Respiratory: Lungs have equal breath sounds bilaterally, clear to auscultation and percussion. No rales, rhonchi or wheezes noted. No increased work of breathing, no retractions or nasal flaring. Abdomen/GI: Soft, non-tender, with normal bowel sounds. No distension or tympany. No guarding or rebound. No evidence of tenderness throughout. Back: No spinal tenderness. No costovertebral tenderness. Full range of motion. Vital Signs: 05:09 BP 128 / 90; Pulse 81; Resp 16 S; Temp 98.9; Pulse Ox 97% on R/A; Weight 68.04 kg (R); bb Height 5 ft. 8 in. (172.72 cm) (R); Pain 7/10; 05:09 Body Mass Index 22.81 (68.04 kg, 172.72 cm) bb MDM: 04:53 Patient medically screened. tw4 Administered Medications: 05:14 Drug: DiFLUcan 200 mg Route: PO; bb Disposition: 05/06/20 05:17 Discharged to Home. Impression: Tinea pedis, Tinea corporis. - Condition is Stable. - Discharge Instructions: Athlete's Foot, Body Ringworm. - Medication Reconciliation Form, Thank You Letter, Antibiotic Education, Prescription Opioid Use form. - Follow up: Private Physician; When: Upon discharge from the Emergency Department; Reason: Recheck today's complaints, Continuance of care, Re-evaluation by your physician. - Problem is new. - Symptoms have improved. Signatures: Seilna Cárdenas RN RN bb Juan José Roberto MD MD tw4 Corrections: (The following items were deleted from the chart) 05:29 05:17 05/06/2020 05:17 Discharged to Home. Impression: Tinea pedis; Tinea corporis. bb Condition is Stable. Forms are Medication Reconciliation Form, Thank You Letter, Antibiotic Education, Prescription Opioid Use. Follow up: Private Physician; When: Upon discharge from the Emergency Department; Reason: Recheck today's complaints, Continuance of care, Re-evaluation by your physician. Problem is new. Symptoms have improved. tw4
== END 2020-05-06 05:29 | disposition home or self-care (01) ==
LOC: ER 04:48
DX: B35.3 Tinea pedis (principal); B35.4 Tinea corporis; F41.8 Other specified anxiety disorders; F17.210 Nicotine dependence, cigarettes, uncomplicated
CPT/HCPCS: 99283

== ENCOUNTER 2020-05-14 05:19 | Emergency (ER) | payer SELFPAY ==
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
--- NOTE | 2020-05-14 05:56 | EDPHYS ---
Physician Documentation [facility] Name: Fuentes Mccall Age: 29 yrs Sex: Male : 1990 Arrival Date: 05/14/2020 Time: 05:23 Bed 7 Private MD: ED Physician Juan José Roberto HPI: 05/14 06:18 This 29 yrs old Male presents to ER via Ambulatory with complaints of Vision tw4 Problem - flashes, Chemical Inhalation - electronics duster, Rash. 06:18 The patient's rash thought to be caused by Dermatitis. The rash is located on the back, tw4 abdomen, right foot and left foot. The rash can be described as papular. Onset: The symptoms/episode began/occurred 1 week(s) ago. Associated signs and symptoms: Pertinent positives: None. Pertinent negatives: None. Severity of symptoms: At their worst the symptoms were moderate in the emergency department the symptoms are unchanged. The patient has experienced a previous episode. seen at [facility] with complaint of anxiety. 06:20 The patient has experienced a previous episode, last week, and the symptoms today are tw4 exactly the same. Historical: - Home Meds: 05:44 Effexor Oral [Active]; ll2 - PMHx: 05:44 Anxiety; Depression; ll2 - Immunization history:: Adult Immunizations up to date. - Social history:: Smoking status: unknown. ROS: 06:18 Constitutional: Negative for fever, chills, and weight loss, Eyes: Negative for injury, tw4 pain, redness, and discharge, Cardiovascular: Negative for chest pain, palpitations, and edema, Respiratory: Negative for shortness of breath, cough, wheezing, and pleuritic chest pain, Abdomen/GI: Negative for abdominal pain, nausea, vomiting, diarrhea, and constipation, Back: Negative for injury and pain, MS/Extremity: Negative for injury and deformity. 06:18 Skin: Positive for rash. Exam: 06:18 Constitutional: This is a well developed, well nourished patient who is awake, alert, tw4 and in no acute distress. Head/Face: Normocephalic, atraumatic. Chest/axilla: Normal chest wall appearance and motion. Nontender with no deformity. No lesions are appreciated. Cardiovascular: Regular rate and rhythm with a normal S1 and S2. No gallops, murmurs, or rubs. Normal PMI, no JVD. No pulse deficits. Respiratory: Lungs have equal breath sounds bilaterally, clear to auscultation and percussion. No rales, rhonchi or wheezes noted. No increased work of breathing, no retractions or nasal flaring. Abdomen/GI: Soft, non-tender, with normal bowel sounds. No distension or tympany. No guarding or rebound. No evidence of tenderness throughout. Back: No spinal tenderness. No costovertebral tenderness. Full range of motion. 06:18 Skin: lesion(s), plaque is noted, rash can be described as papular, plaque-like, raised, on the back, abdomen, right foot and left foot. Vital Signs: 05:38 BP 146 / 73; Pulse 108; Resp 20; Temp 99.8; Pulse Ox 98% on R/A; ll2 05:47 BP 146 / 73; Pulse 108; Resp 20; Temp 99.8; Pulse Ox 98% on R/A; ll2 MDM: 05:31 Patient medically screened. tw4 05:54 Data reviewed: vital signs, nurses notes. Medical screen evaluation completed. EMTALA tw4 emergency medical condition absent. Special discussion: I discussed with the patient/guardian in detail that at this point there is no indication for admission to the hospital. It is understood, however, that if the symptoms persist or worsen the patient needs to return immediately for re-evaluation. Administered Medications: No medications were administered Disposition: 05/14/20 05:55 Discharged to Home. Impression: Dermatitis, unspecified. - Condition is Stable. - Medication Reconciliation Form, Thank You Letter, Antibiotic Education, Prescription Opioid Use form. - Follow up: Private Physician; When: Upon discharge from the Emergency Department; Reason: Recheck today's complaints, Continuance of care, Re-evaluation by your physician. - Problem is an ongoing problem. - Symptoms are unchanged. Signatures: Juan José Roberto MD MD tw4 Ciara Craig RN RN ll2 Corrections: (The following items were deleted from the chart) 05:57 05:55 05/14/2020 05:55 Discharged to Home. Impression: Dermatitis, unspecified. ll2 Condition is Stable. Forms are Medication Reconciliation Form, Thank You Letter, Antibiotic Education, Prescription Opioid Use. Follow up: Private Physician; When: Upon discharge from the Emergency Department; Reason: Recheck today's complaints, Continuance of care, Re-evaluation by your physician. Problem is an ongoing problem. Symptoms are unchanged. tw4
[2020-05-14 06:05] VITALS: BP 146/73; TEMP 99.8; O2SAT 98
== END 2020-05-14 05:57 | disposition home or self-care (01) ==
LOC: ER 05:19
DX: L30.9 Dermatitis, unspecified (principal); F41.8 Other specified anxiety disorders
CPT/HCPCS: 99284

== ENCOUNTER 2020-05-23 01:55 | Emergency (ER) | payer SELFPAY ==
[2020-05-23] MEDS ORDERED: ONDANSETRON 4 MG/2 ML VIAL ONE (03:21)
[2020-05-23] MEDS ORDERED: NA CHLORIDE 0.9% 1,000 ML ONE (03:21)
[2020-05-23 03:42] LABS: Protime INR 0.97
[2020-05-23 03:43] LABS: Barbiturates NEGATIVE (NEGATIVE); Benzodiazepines NEGATIVE (NEGATIVE); Cocaine NEGATIVE (NEGATIVE); METHAMPHETAM POSITIVE (NEGATIVE); Methadone NEGATIVE (NEGATIVE); Opiates NEGATIVE (NEGATIVE); Phencyclidine NEGATIVE (NEGATIVE); THC Cannibis NEGATIVE (NEGATIVE)
[2020-05-23] MEDS ORDERED: LORazepam 2 MG/ML VIAL ONE (03:44)
[2020-05-23 03:48] LABS: ALT/SGPT 23 U/L (12-78); AST/SGOT 22 U/L (15-37); Albumin 3.8 g/dL (3.4-5.0); Alkaline Phosphatase 96 U/L (45-117); BUN Blood Urea Nitrogen 9 mg/dL (7-18); Bicarbonate 24 mmol/L (21-32); Bilirubin Direct < 0.1 mg/dL (0-0.2); Bilirubin Total 0.4 mg/dL (0.2-1.0); Glucose Level 90 mg/dL (74-106); Potassium 3.5 mmol/L (3.5-5.1); Protein, Total 7.4 g/dL (6.4-8.2); Sodium Level 141 mmol/L (136-145)
[2020-05-23 03:52] LABS: Absolute Lymphocytes (CBC) 1.9 K/uL (0.7-4.9); Basophils % 0.4 % (0-1.3); Hematocrit 41.7 % (39.6-49.0); Lymphocytes % 34.4 % (15.3-44.8); MPV 8.2 fL (7.6-11.3); RBC Red Blood Cell Count 4.54 M/uL (4.33-5.43)
--- NOTE | 2020-05-23 05:23 | ER ---
Nurse's Notes [facility] Name: Fuentes Mccall Age: 29 yrs Sex: Male : 1990 Arrival Date: 05/23/2020 Time: 02:00 Bed 16 Private MD: Diagnosis: Anxiety syndrome. Substance abuse Presentation: 05/23 02:30 Chief complaint: Patient states: he took a shower this morning at approx 0130 and bb afterwards he is tasting blood and soap in his mouth causing him to feel shaking, weak, light-headed, he also states his mother uses a lot of permethrin around the house and walked through it, pt had a lot of diarrhea several days ago. Coronavirus screen: diarrhea, Client presents with at least one sign or symptom that may indicate coronavirus-19. Standard/surgical mask placed on the client. Ebola Screen: No symptoms or risks identified at this time. 02:30 Method Of Arrival: Wheelchair bb 02:39 Initial Sepsis Screen: Does the patient meet any 2 criteria? No. Patient's initial bb sepsis screen is negative. Does the patient have a suspected source of infection? No. Patient's initial sepsis screen is negative. Risk Assessment: Do you want to hurt yourself or someone else? Patient reports no desire to harm self or others. Onset of symptoms was May 23, 2020. 02:39 Acuity: TEO 3 bb Triage Assessment: 02:52 General: Appears in no apparent distress. comfortable, Behavior is calm, cooperative. mg2 Historical: - Allergies: 02:40 No Known Allergies; bb - Home Meds: 02:40 Effexor Oral [Active]; bb - PMHx: 02:40 Anxiety; Depression; bb - PSHx: 02:40 gastric sleeve; achilles tendon; bb - Immunization history:: Adult Immunizations up to date. - Social history:: Smoking status: Patient reports the use of cigarette tobacco products, smokes one-half pack cigarettes per day, Patient uses alcohol, occasionally. Patient/guardian denies using street drugs. Screenin:51 Abuse screen: Denies threats or abuse. Denies injuries from another. Nutritional mg2 screening: No deficits noted. Tuberculosis screening: No symptoms or risk factors identified. Fall Risk None identified. Assessment: 02:50 Pain: Complains of pain in abdomen. Neuro: Level of Consciousness is awake, alert, mg2 obeys commands, Oriented to person, place, time, situation. Cardiovascular: Capillary refill < 3 seconds Patient's skin is warm and dry. Respiratory: Airway is patent Respiratory effort is even, unlabored, Respiratory pattern is regular, symmetrical. GI: Reports vomiting. : No signs and/or symptoms were reported regarding the genitourinary system. EENT: Reports difficulty swallowing. Derm: Skin is intact, is healthy with good turgor, Skin is pink, warm \T\ dry. normal. Musculoskeletal: Circulation, motion, and sensation intact. Capillary refill < 3 seconds. 03:40 Reassessment: Patient appears in no apparent distress at this time. Patient and/or mg2 family updated on plan of care and expected duration. Pain level reassessed. Patient is alert, oriented x 3, equal unlabored respirations, skin warm/dry/pink. patient was shaking. provider informed and ordered to give medicine. 05:08 Reassessment: Patient appears in no apparent distress at this time. Patient denies pain mg2 at this time. Patient states feeling better. Patient states symptoms have improved. Vital Signs: 02:30 BP 120 / 87; Pulse 88; Resp 16 S; Temp 98.8(O); Pulse Ox 98% on R/A; Weight 68.04 kg bb (R); Height 5 ft. 8 in. (172.72 cm) (R); Pain 0/10; 03:51 BP 125 / 80; Pulse 95; Resp 18; Pulse Ox 100% on R/A; mg2 05:28 BP 120 / 78; Pulse 80; Resp 18; Temp 98; Pulse Ox 100% on R/A; mg2 02:30 Body Mass Index 22.81 (68.04 kg, 172.72 cm) ED Course: 02:00 Patient arrived in ED. ag3 02:16 Wicho Rubio FNP-C [facility]. la1 02:16 Cory Sargent MD is Attending Physician. pkl 02:23 Jimmy Tanner, SIMEON is Primary Nurse. mg2 02:39 Triage completed. bb 02:40 Arm band placed on Patient placed in an exam room, on a stretcher, on pulse oximetry. bb Family accompanied patient. 02:51 Patient has correct armband on for positive identification. Pulse ox on. NIBP on. mg2 02:51 No provider procedures requiring assistance completed. mg2 03:15 Urine collected: clean catch specimen, clear. rr5 03:18 Inserted saline lock: 20 gauge in left forearm, using aseptic technique. Blood rr5 collected. 04:11 XRAY CXR (1 view) In Process Unspecified. EDMS 05:28 IV discontinued, intact, bleeding controlled, No redness/swelling at site. Pressure mg2 dressing applied. Administered Medications: 03:21 Drug: NS 0.9% 1000 ml Route: IV; Rate: 1000 ml; Site: left forearm; mg2 04:09 Follow up: Response: No adverse reaction; IV Status: Completed infusion; IV Intake: mg2 1000ml 03:21 Drug: Zofran (Ondansetron) 4 mg Route: IVP; Site: left forearm; mg2 03:50 Follow up: Response: No adverse reaction mg2 03:32 Drug: Ativan 1 mg Route: IVP; Site: left forearm; mg2 04:09 Follow up: Response: No adverse reaction; Marked relief of symptoms mg2 Intake: 04:09 IV: 1000ml; Total: 1000ml. mg2 Outcome: 05:22 Discharge ordered by . saida 05:29 Discharged to home ambulatory, with family. mg2 05:29 Condition: stable 05:29 Discharge instructions given to patient, family, Instructed on discharge instructions, follow up and referral plans. Demonstrated understanding of instructions, follow-up care. 05:29 Patient left the ED. mg2 Signatures: Dispatcher [employer] EDMS Cory Sargent MD MD pkl Ballard, Brenda RN SIMEON bb Wicho Rubio, NEWSPAPER PRESS OPERATOR APPRENTICE-C NEWSPAPER PRESS OPERATOR APPRENTICE-Cla1 Jimmy Tanner RN RN mg2 Daniela Cameron3 Cristopher Ruff RN RN rr5
--- NOTE | 2020-05-23 05:23 | EDPHYS ---
Physician Documentation [facility] Name: Fuentes Mccall Age: 29 yrs Sex: Male : 1990 Arrival Date: 05/23/2020 Time: 02:00 Bed 16 Private MD: ED Physician Cory Sargent HPI: 05/23 03:05 This 29 yrs old Male presents to ER via Wheelchair with complaints of pkl Weakness. 03:05 The patient presents to the emergency department with anxiety. Onset: The pkl symptoms/episode began/occurred just prior to arrival. Patient states he took a shower at around 0130 and afterwards he is tasting blood and soap in his mouth. this caused him to feel shaky, weak and light-headed. Historical: - Allergies: 02:40 No Known Allergies; bb - Home Meds: 02:40 Effexor Oral [Active]; bb - PMHx: 02:40 Anxiety; Depression; bb - PSHx: 02:40 gastric sleeve; achilles tendon; bb - Immunization history:: Adult Immunizations up to date. - Social history:: Smoking status: Patient reports the use of cigarette tobacco products, smokes one-half pack cigarettes per day, Patient uses alcohol, occasionally. Patient/guardian denies using street drugs. ROS: 03:05 Eyes: Negative for injury, pain, redness, and discharge, ENT: Negative for injury, pkl pain, and discharge, Neck: Negative for injury, pain, and swelling, Cardiovascular: Negative for chest pain, palpitations, and edema, Respiratory: Negative for shortness of breath, cough, wheezing, and pleuritic chest pain, Abdomen/GI: Negative for abdominal pain, nausea, vomiting, diarrhea, and constipation, Back: Negative for injury and pain, : Negative for injury, bleeding, discharge, and swelling, MS/Extremity: Negative for injury and deformity, Skin: Negative for injury, rash, and discoloration, Neuro: Negative for headache, weakness, numbness, tingling, and seizure. 03:05 Psych: Positive for anxiety, Negative for suicidal ideation. Exam: 03:05 Head/Face: Normocephalic, atraumatic. Eyes: Pupils equal round and reactive to light, pkl extra-ocular motions intact. Lids and lashes normal. Conjunctiva and sclera are non-icteric and not injected. Cornea within normal limits. Periorbital areas with no swelling, redness, or edema. ENT: Nares patent. No nasal discharge, no septal abnormalities noted. Tympanic membranes are normal and external auditory canals are clear. Oropharynx with no redness, swelling, or masses, exudates, or evidence of obstruction, uvula midline. Mucous membranes moist. Neck: Trachea midline, no thyromegaly or masses palpated, and no cervical lymphadenopathy. Supple, full range of motion without nuchal rigidity, or vertebral point tenderness. No Meningismus. Chest/axilla: Normal chest wall appearance and motion. Nontender with no deformity. No lesions are appreciated. Cardiovascular: Regular rate and rhythm with a normal S1 and S2. No gallops, murmurs, or rubs. Normal PMI, no JVD. No pulse deficits. Respiratory: Lungs have equal breath sounds bilaterally, clear to auscultation and percussion. No rales, rhonchi or wheezes noted. No increased work of breathing, no retractions or nasal flaring. Abdomen/GI: Soft, non-tender, with normal bowel sounds. No distension or tympany. No guarding or rebound. No evidence of tenderness throughout. Back: No spinal tenderness. No costovertebral tenderness. Full range of motion. Skin: Warm, dry with normal turgor. Normal color with no rashes, no lesions, and no evidence of cellulitis. MS/ Extremity: Pulses equal, no cyanosis. Neurovascular intact. Full, normal range of motion. Neuro: Awake and alert, GCS 15, oriented to person, place, time, and situation. Cranial nerves II-XII grossly intact. Motor strength 5/5 in all extremities. Sensory grossly intact. Cerebellar exam normal. Normal gait. 03:05 Psych: Behavior/mood is cooperative, Affect is calm, Patient has no thoughts/intents to harm self or others. Vital Signs: 02:30 BP 120 / 87; Pulse 88; Resp 16 S; Temp 98.8(O); Pulse Ox 98% on R/A; Weight 68.04 kg bb (R); Height 5 ft. 8 in. (172.72 cm) (R); Pain 0/10; 03:51 BP 125 / 80; Pulse 95; Resp 18; Pulse Ox 100% on R/A; mg2 05:28 BP 120 / 78; Pulse 80; Resp 18; Temp 98; Pulse Ox 100% on R/A; mg2 02:30 Body Mass Index 22.81 (68.04 kg, 172.72 cm) bb MDM: 02:16 Patient medically screened. pkl 05:17 Data reviewed: vital signs, nurses notes, lab test result(s), radiologic studies, plain pkl films. ED course: Patient feeling better. Discussed lab results with patient. Advised to follow with PCP in 1 to 2 days. Patient understood instructions. 05/23 03:03 Order name: Acetaminophen; Complete Time: 04:20 pkl 05/23 03:03 Order name: Basic Metabolic Panel; Complete Time: 04:20 pkl 05/23 03:03 Order name: CBC with Diff; Complete Time: 04:20 pkl 05/23 03:03 Order name: ETOH Level; Complete Time: 04:20 pkl 05/23 03:03 Order name: Hepatic Function; Complete Time: 04:20 pkl 05/23 03:03 Order name: PT-INR; Complete Time: 04:20 pkl 05/23 03:03 Order name: Ptt, Activated; Complete Time: 04:20 pkl 05/23 03:03 Order name: Salicylate; Complete Time: 04:20 pkl 05/23 03:03 Order name: Urine Drug Screen; Complete Time: 04:20 pkl 05/23 03:03 Order name: EKG; Complete Time: 03:04 pkl 05/23 03:03 Order name: XRAY CXR (1 view) pkl 05/23 03:03 Order name: EKG - Nurse/Tech; Complete Time: 03:21 pkl 05/23 03:03 Order name: IV Saline Lock; Complete Time: 03:18 pkl 05/23 03:03 Order name: Labs collected and sent; Complete Time: 03:18 pkl 05/23 03:03 Order name: Urine Dipstick-Ancillary (obtain specimen); Complete Time: 03:21 pkl Administered Medications: 03:21 Drug: NS 0.9% 1000 ml Route: IV; Rate: 1000 ml; Site: left forearm; mg2 04:09 Follow up: Response: No adverse reaction; IV Status: Completed infusion; IV Intake: mg2 1000ml 03:21 Drug: Zofran (Ondansetron) 4 mg Route: IVP; Site: left forearm; mg2 03:50 Follow up: Response: No adverse reaction mg2 03:32 Drug: Ativan 1 mg Route: IVP; Site: left forearm; mg2 04:09 Follow up: Response: No adverse reaction; Marked relief of symptoms mg2 Disposition: 05/23/20 05:22 Discharged to Home. Impression: Anxiety syndrome. Substance abuse. - Condition is Stable. - Medication Reconciliation Form, Thank You Letter, Antibiotic Education, Prescription Opioid Use form. - Follow up: Private Physician; When: 1 - 2 days; Reason: Re-evaluation by your physician. - Problem is new. - Symptoms have improved. Signatures: Dispatcher [employer] EDMS Cory Sargent MD MD pkl Selina Cárdenas RN RN bb Jimmy Tanner RN RN mg2 Corrections: (The following items were deleted from the chart) 05:29 05:22 05/23/2020 05:22 Discharged to Home. Impression: Anxiety syndrome. Substance mg2 abuse. Condition is Stable. Forms are Medication Reconciliation Form, Thank You Letter, Antibiotic Education, Prescription Opioid Use. Follow up: Private Physician; When: 1 - 2 days; Reason: Re-evaluation by your physician. Problem is new. Symptoms have improved. pkl
[2020-05-23 05:55] VITALS: O2SAT 100
[2020-05-23 05:57] VITALS: BP 120/78; TEMP 98
--- NOTE | 2020-05-23 07:20 | EKG ---
Test Date: 2020-05-23 Test Time: 03:21:38 Reed Repairer: MEASUREMENT RESULTS: Intervals: Rate: 90 NV: 134 QRSD: 90 QT: 376 QTc: 459 [place]: P: 72 NV: 134 QRS: 63 T: 56 INTERPRETIVE STATEMENTS: Normal sinus rhythm Normal ECG Compared to ECG 03/20/2020 06:16:29 Sinus tachycardia no longer present Electronically Signed On 05-23-20 07:19:30 CDT by Horacio Joaquin
--- NOTE | 2020-05-23 09:27 | RAD REPORT ---
EXAM DESCRIPTION: RAD - Chest Single View - 05/23/2020 4:10 am CLINICAL HISTORY: light- headed Chest pain. COMPARISON: Chest Pa And Lat (2 Views) dated 04/19/2020; Chest Single View dated 04/09/2020; Chest Sin gle View dated 03/25/2020 FINDINGS: Portable technique limits examination quality. The lungs are grossly clear. The heart is normal in size. No displaced fractures. IMPRESSION: No acute intrathoracic process suspected.
== END 2020-05-23 05:29 | disposition home or self-care (01) ==
LOC: ER 01:55
DX: F19.10 Other psychoactive substance abuse, uncomplicated (principal); F17.210 Nicotine dependence, cigarettes, uncomplicated; F41.8 Other specified anxiety disorders; Z98.84 Bariatric surgery status
CPT/HCPCS: 36415; 71045; 80048; 80076; 80307; 80320; 80329; 85025; 85610; 85730; 93005; 96361; 96374; 96375; 99284; J2405; J7030